=== PATIENT | male | born 1955 | race Caucasian/White ===

== ENCOUNTER 2023-06-20 10:12 | Outpatient (AMB) | payer BC, SELFPAY ==
--- NOTE | 2023-06-20 10:15 | AM.OFFWIN_ITS ---
Intake Vital Signs 06/20/23 10:18 Weight 280 lb BP 130/74 Blood Pressure Location Rt brachial Position Sitting Pulse 56 Pulse Source Pulse Oximeter Pulse Oximetry (%) 98 Oxygen Delivery Method Room Air Intake Visit Reasons: EP, Back pain Intake Note: Patient here for back pain, he states it has been lingering for a long time but the last couple of days it has worsened. Patient Tobacco Use Status: Never used Tobacco Allergies No Known Allergies Allergy (Verified 06/20/23 10:18) Do you need a note to return to daycare/school/sports/work: No HPI EP, Back pain HPI Details Patient presents today with left sided lower back pain. He had a fall about 30 years ago in which he injured his mid lower back, however this resolved and he has not had problems since then. About a week and a half ago he developed left sided lower back pain which is nonradiating. This is worsened with prolonged standing, and rising from a seated or bent over position. He denies any radiation to legs, weakness, saddle anesthesia, or bowel/ bladder dysfunction. [facility] Social History Patient Tobacco Use Status: Never used Tobacco Review of Systems Const All systems reviewed & are unremarkable except as noted in HPI and below Physical Exam Vital Signs: Last Vital Signs Pulse 56 06/20/23 10:18 BP 130/74 06/20/23 10:18 Pulse Ox 98 06/20/23 10:18 Oxygen Delivery Method Room Air 06/20/23 10:18 Const General: cooperative, healthy appearing, comfortable and no acute distress Resp Effort & Inspection: normal respiratory effort and able to speak in complete sentences Back/Spine/Pelvis Cervical Spine: normal cervical lordosis and cervical ROM normal Thoracic/Lumbar Spine: thoracic and lumbar spine normal to inspection, straight leg raise negative bilaterally, pain with thoraco-lumbar ROM (pain with extension, left side bending) and lumbar spinal tenderness (left facet loading pain L3/4/5) Skin General skin exam: no rashes or lesions noted Extrem Other: hip ROM wnl General: Yes capillary refill normal and Yes no clubbing, cyanosis or edema Psych Appearance: grossly normal Mental Status: mental status grossly normal Speech and movement: Normal speech and movement present Assessment & Plan Assessment & Plan (1) Left low back pain: Code(s): M54.50 - Low back pain, unspecified Qualifiers: Chronicity: acute Sciatica presence: without sciatica Qualified Code(s): M54.50 - Low back pain, unspecified Plan: This pain appears to be left lower lumbar facet mediated in nature, likely L3/4, L4/5 on the left. We reviewed conservative measures for this including gentle stretching and nonweightbearing exercises such as biking and swimming. He is going to look into chiropractic treatment to see if this will help. I will order lumbar XR and prescribe him a short course of meloxicam, which we reviewed indications, use, possible side effects for. If he does not improve with conservative treatment, he will consider course of physical therapy and possible injection therapy with Pain Management office. He agrees to plan. Orders: Orders XR lumbar spine 2-3V Today M54.50 - Low back pain, unspecified Medications: New meloxicam 7.5 mg PO DAILY 7 tabs 0RF M54.50 - Low back pain, unspecified Coding Level of Care Code Est Pt Level 3 (14338) Diagnoses Left low back pain M54.50 Chronicity: acute Sciatica presence: without sciatica
[2023-06-20 10:18] VITALS: BP 130/74; PULSE 56; O2SAT 98
== END 2023-06-20 10:52 | disposition home or self-care (01) ==
PROVIDERS: PCP Internal Medicine; Visit Provider Nurse Practitioner Family
DX: M54.50 Low back pain, unspecified (principal)
CPT/HCPCS: 99213

== ENCOUNTER 2023-06-20 10:53 | Outpatient (REF) | payer BC, SELFPAY ==
--- NOTE | ~2023-06-20 | XR_ITS ---
EXAMINATION: XR LUMBOSACRAL SPINE CLINICAL INFORMATION: Low back pain COMPARISON: None available. TECHNIQUE: Three views of the lumbosacral spine. FINDINGS: Mild lumbar lordotic straightening. Trace rightward scoliosis. Multilevel degenerative spurring and disc space narrowings, most severe L5-S1. Multilevel mild vertebral body height losses. Pedicles and SI joints within normal limits. Vascular calcifications. XR/XR lumbar spine 2-3V IMPRESSION: Lumbar lordotic straightening and degenerative type changes.
== END 2023-06-20 10:54 | disposition home or self-care (01) ==
LOC: HO.HMGCX 10:53
PROVIDERS: PCP Internal Medicine; Visit Provider Nurse Practitioner Family
DX: M54.50 Low back pain, unspecified (principal)
CPT/HCPCS: 72100

== ENCOUNTER 2023-08-23 11:05 | Outpatient (AMB) | payer MEDICARE, SELFPAY ==
--- NOTE | 2023-08-23 11:08 | MHC.OFFWIV ---
Intake Vital Signs 08/23/23 11:09 Height 6 ft 1 in Weight 280 lb 8 oz BMI 37.0 BP 128/60 Blood Pressure Location Lt brachial Position Sitting Respiration 13 Pulse 62 Pulse Source Pulse Oximeter Pulse Oximetry (%) 99 Oxygen Delivery Method Room Air Intake Visit Reasons: Back pain Intake Note: Patient reports he was playing racketball x7 days ago and he moved wrong and now his back has been in pain ever since. Patient reports he tried Tylenol over the counter with only small amount of pain relief. Patient reports he is able to sit and lay down without pain, however, when he tries to stand back up again the pain is severe with a 9/10 pain scale. Patient Tobacco Use Status: Never used Tobacco Database Report Writer Required: No Accompanied by: Self / Same As Patient Allergies No Known Allergies Allergy (Verified 08/23/23 11:23) Medication List - Last Reconciled 08/23/23 by MIKEY Estrada-BC atorvastatin 40 mg PO DAILY gabapentin 600 mg PO DAILY losartan 100 mg PO DAILY meloxicam 7.5 mg PO DAILY polymyxin B sulf-trimethoprim 10,000 unit- 1 mg/mL (Polytrim) 1 drp ophthalmic (eye) QID PRN 5 days Do you need a note to return to daycare/school/sports/work: No HPI HPI Comments History of Present Illness Details here today w c/o right lower back that started 7 days ago after playing racketball admits prior hx of back pain in same area while playing ball in the past, however on the L side; most recently 06/2023. Evaled at [facility]. Xray done. Reviewed today. Currently undergoing PT for this issue with + benefit. first time playing in several years APAP taking the edge off a little pain is described as grabbing causes him to sweat. Standing still helps the pain. 9/10 during these events. Self limiting. Admits quick movements can also increase the pain. Walking does not bother him. Intermittent in nature. denies red flag sx assoc w back pain. Further denies any spinal surgeries. [facility] Social History Patient Tobacco Use Status: Never used Tobacco Review of Systems Const All systems reviewed & are unremarkable except as noted in HPI and below Physical Exam Vital Signs: Last Vital Signs Pulse 62 08/23/23 11:09 Resp 13 08/23/23 11:09 BP 128/60 08/23/23 11:09 Pulse Ox 99 08/23/23 11:09 Oxygen Delivery Method Room Air 08/23/23 11:09 BMI result Body Mass Index 37.0 Const General: cooperative, healthy appearing, comfortable and no acute distress Resp Effort & Inspection: normal respiratory effort and able to speak in complete sentences Back/Spine/Pelvis Other: sitting to standing, has to pause d/t pain. Self limiting last seconds. + paraspinal muscle tightness on R. Palpation does not reproduce the pain. No CVAT bilat, Cervical Spine: normal cervical lordosis and cervical ROM normal Thoracic/Lumbar Spine: thoracic and lumbar spine normal to inspection, straight leg raise negative bilaterally and pain with thoraco-lumbar ROM (pain with extension, left side bending) Sacroiliac joints: on the right nontender and on the left nontender Skin General skin exam: no rashes or lesions noted Extrem Other: hip ROM wnl General: Yes capillary refill normal and Yes no clubbing, cyanosis or edema Psych Appearance: grossly normal Mental Status: mental status grossly normal Speech and movement: Normal speech and movement present Assessment & Plan Assessment & Plan (1) Spasm of muscle of lower back: Code(s): M62.830 - Muscle spasm of back Medications: New cyclobenzaprine 5 mg PO BID 7 days PRN 14 tabs 0RF muscle spasm Refilled meloxicam 7.5 mg PO DAILY 14 tabs 0RF M54.50 - Low back pain, unspecified Patient Instructions: Advised to take meloxicam as directed with food. Use of muscle relaxers sparingly. Encouraged take the 1st dose while at home to see how it affects him. Do not drive or operate heavy machinery, drink alcohol or work while taking muscle relaxers as it may cause you to feel sleepy. Encouraged to continue gentle ecuun-nt-paxpkg exercises. Discouraged bed rest. He is already acted with physical therapy. Reports that his next appointment was expected to be his last. I have asked him to speak with the PT team and if they felt it was indicated to request an extension to help him work through the pain that he is having on his right side down. He prefers to wait to have this last appointment until after his pain has improved some. Encouraged him to continue to play this worse that he likes while taking appropriate precautions. Also educated on reasons to return to the office for further evaluation treatment. Coding Level of Care Code Est Pt Level 3 (37714) Diagnoses Spasm of muscle of lower back M62.830
[2023-08-23 11:09] VITALS: BP 128/60; PULSE 62; RESP 13; O2SAT 99; BMI 37.0
== END 2023-08-23 11:41 | disposition home or self-care (01) ==
PROVIDERS: PCP Internal Medicine; Visit Provider Nurse Practitioner Family
DX: M62.830 Muscle spasm of back (principal)
CPT/HCPCS: 99213

== ENCOUNTER 2025-03-11 07:55 | Outpatient (AMB) | payer MEDICARE, SELFPAY ==
--- OUTSIDE RECORDS SUMMARY | 2025-03-11 07:58 | XMS_ITS ---
Author Organization [facility] favian [place] Address [address] [facility] INDIGO [place] [address] Care Team Providers Care Senior Mechanical Technician Name Role Phone Mukul Woodall M.D. Primary Care Provider Unavailable Hima Gonzalez [phone] REASON FOR VISIT [facility] Encounters Encounter Location Date Provider Diagnosis [facility] [address] [address] 02/10/2025 Hima Gonzalez Plan Of Treatment Next Appt Details Provider Name:Hima Gonzalez , 05/19/2025 04:00:00 PM, [address] [place] [address], [place], [phone], Progress Notes * Elieser WEBER RDOB:[birth year] (69 yo M)Acc No.[id number]:02/10/2025 Patient:?Elieser WEBER :1955???Age:69 Y???Sex:Male Address: [place], [address] * true * Date:? Generated for Printi ng/Faxing/eTransmitting on:?03/11/2025 07:58 AM EDT
--- OUTSIDE RECORDS SUMMARY | 2025-03-11 07:59 | XMS_ITS | Data Portability ---
Author Organization [place] [facility], Allergy Address [address] [address] Care Team Providers Care Automat Car Attendant Name Role Phone JACEY PERDUE Primary Care Provider [phone] Assessment Encounter Date Assessment Date Assessment LastModified by Organization Details LastModified Time 09/27/2024 09/27/2024 68-year-old male with longstanding history of asymmetric hearing loss using binaural amplification from [employer] and bilateral EACs osteomas presents for routine audiometric testing. Cerumen impaction removed bilaterally. 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 Bilateral TMs are intact. No evidence of infection on exam today. Audiometric testing today demonstrated an essentially stable asymmetric sensorineural hearing loss, worse on the right. We will continue to observe asymmetric hearing loss and plan for repeat audiometric testing in one year. He will follow-up at that time, or sooner with any concerns. Patient was provided with copy of today's audiogram and medical clearance for amplification. He will follow up with his field handyman for routine hearing aid maintenance. [email or web address] Not available 09/27/2024 10:55:33 Plan of Treatment Reminders Order Date Submit Date Provider Last Modified By Organization Details Last Modified Time Details Appointments Hearing Test 2024 10:00A M Hearing Test Not available Not available Not available Establish ed 15 2024 10:30A M DIEGO CLAY PA-C Not available Not available Not available Lab None recorded. Referral None recorded. Procedures None recorded. Surgeries None recorded. Imaging None recorded. Medication Orders None recorded. Patient TargetsNo targets recorded. Patient InstructionsNo instructions recorded. Reason for Referral None Reported. Problems Name Problem SNOMED Code Status Onset Date Resolution Date Notes Provider Name and Address Organization Details Recorded Time Sensorine ural hearing loss of bilateral ears 867022135 Active 2017 Sensorine ural hearing loss, bilateral ; Note: Date Diagnosed : 8 3:45 PM (H90.3) Not Available [facility] 4 03:27:35 Impacted cerumen of bilateral ears [id number] 09763 Active 2022 Impacted cerumen, bilateral ; Note: Date Diagnosed : 3 12:42 PM (H61.23) Not Available [facility] 4 03:27:34 Bilateral exostosis of external ear canals [id number] 38648 Active 2018 Exostosis of external canal, bilateral ; Note: Date Diagnosed : 12/20/2018 12:07 PM (H61.813) Not Available [facility] 4 03:27:34 Problem Notes None recorded. Procedures Surgical History Date Name Laterality Status Provider Name and Address Organization Details Recorded Time 4 Cerumen removal without microscope bilat completed DIEGO CLAY PA-C [address] [place] [address], [phone], [facility] 09/27/2024 10:53:14 4 Air & Speech Audio with Tymps - 82108, 88786 & 67976 completed TYRELL KHAN [address] [place] [address], [phone], [facility] 09/27/2024 10:08:19 Imaging Results None recorded. Procedure Notes None recorded. Medical Equipment None Reported. Allergies Allergen ID Allergen Name Allergen Category Reaction Reaction Severity Criticality Documentation Date Start Date Code Code System Note Provider Name and Address Organization Details Recorded Time 33555 lisinopri l medicatio n other Not available Not available 03/19/2024 50063 RxNorm React ion: unkno wn, unspe cifie d;; Not Available [facility] 4 00:49:57 Medications Name Sig Start Date Stop Date Status Note LastModified by Organization Details LastModified Time atorvastati n 40 mg tablet TAKE 1 TABLET ONCE DAILY active Not Available Not Available No t Available senna 8.6 mg tablet TAKE ONE TABLET BY MOUTH EVERY DAY active Not Available Not Available No t Available cephalexin 500 mg capsule TAKE ONE CAPSULE BY MOUTH EVERY 6 HOURS FOR 10 DAYS 09/27 completed Not Available Not Available Not Available gabapentin 300 mg capsule TAKE 2 CAPSULES NIGHTLY active Not Available Not Available No t Available Iodosorb 0.9 % topical gel APPLY DIRECTED EXTERNALL Y TO ULCERATIO N DAILY WITH DRY STERILE DRESSING 09/27 completed Not Available Not Available Not Available losartan 100 mg tablet active Not Available Not Available Not Available ciclopirox 0.77 % topical cream APPLY ONE APPLICATI ON EXTERNAL TWICE A DAY TO FEET INCLUDING BETWEEN THE TOES active Not Available Not Available No t Available Vitals None Recorded Social History None recorded. Functional Status None recorded. Mental Status None recorded. Family History Nothing Reported. Medical History Condition Response High Cholesterol Y Hypertension Y Past Encounters Encounter ID Performer Location Encounter Start Date Encounter Closed Date Diagnosis/Indication Diagnosis SNOMED-CT Code Diagnosis ICD10 Code Diagnosis Note [id number] DIEGO CLAY PA-C [facility] [address] [address] 09/27/2024 09:40:19 09/27/2024 10:48:43 Sensorineural hearing loss of bilateral ears [id number] H90.3 Audiologic al evaluation results: Right ear: {{Normal* Normal through 2 kHz Mild M oderate Mo derately-s evere Pearl re Profoun d}} {{hearing hearing. s loping to a mild slopi ng to a moderate s loping to moderately severe slo ping to severe slo ping to profound* flat high frequency low frequency mid frequency cookie bite jack curve}} {{with sen sorineural hearing loss with* cond uctive hearing loss with mixed hearing loss with}} {{excellen t good* fa ir poor no measurable }} word recognitio n. Left ear: {{Normal* Normal through 2 kHz Mild M oderate Mo derately-s evere Pearl re Profoun d}} {{hearing hearing. s loping to a mild slopi ng to a moderate s loping to moderately severe slo ping to severe* sl oping to profound f lat high frequency low frequency mid frequency cookie bite jack curve}} {{with sen sorineural hearing loss with* cond uctive hearing loss with mixed hearing loss with}} {{excellen t* good fa ir poor no measurable }} word recognitio n. Tympanomet ry: Right Ear:{{Type A* Type As Type Ad Type C Type C, shallow & rounded Ty pe B Type B with large volume Cou ld not maintain a hermetic seal}} Left Ear:{{Type A Type As Type Ad* Type C Type C, shallow & rounded Ty pe B Type B with large volume Cou ld not maintain a hermetic seal}} Impacted c erumen of bilateral ears [id number] H61.23 Health Concerns Section Related Observation LastModified by Organization Detai ls LastModified Time None Recorded Concern Status LastModified by Organization Details LastModified Time None Recorded Advance Directives Directive None Recorded Payers Encounter Date Sequence Insurance Name Policy Number Policy Raymond Covered Member ID Raymond Member ID Guarantor Name 09/27/2024 1 [facility]: MEDICARE PPO BLUE (MEDICARE REPLACEMENT PPO) [id number] Elieser Beckwith [id number] Elieser Beckwith Notes Date Note Type Note Provider Name and Address Organization Details Recorded Time 09/27/2024 text/html 68-year-old male with longstanding history of asymmetric hearing loss using binaural amplification from [employer] and bilateral EACs osteomas presents for routine audiometric testing. Reports gradual decline in hearing on the right and intermittent otalgia, but denies otorrhea and tinnitus. Is considering new hearing aids. DIEGO CLAY PA-C [address] [place] [address], [phone], [facility] 09/27/2024 10:56:15
--- OUTSIDE RECORDS SUMMARY | 2025-03-11 07:59 | XMS_ITS | Patient Health Record ---
Author Organization [facility] Laurie favian [place] Address [address] [facility] [place] [address] Care Team Providers Care Communication Assistant Name Role Phone Mukul Woodall M.D. Primary Care Provider Unavailable Hima Gonzalez Unavailable [phone] Allergies No Known Allergies Reason For Referral No Information Medications Medication SIG (Take, Route, Frequency, Duration) Notes Start Date End Date Status Cephalexin 500 MG 1 capsule Orally amaya ry 6 hrs for 10 days Not-Taking Mupirocin Not-Taking Atorvastatin Calcium 40 MG 1 tablet Orally Once a day for 30 day(s) Active Gabapentin 600 MG 1 tablet Orally Once a day for 30 days Active Gabapentin 300 MG 1 capsule Orally Onc e a day Active Losartan Potassium 100 MG 1 tablet Orall y Once a day for 30 day(s) Active Ciclopirox Olamine 0.77 % 1 application Externally Twice a day to feet including between the toes for 30 days Active Iodosorb 0.9 % as directed External ly Apply to ulceration daily with dry sterile dressing for 30 days Not-Taking Social History Tobacco Use: Social History Observation Description Date Details (start date - stop date) Never Smoker NA - NA Alcohol Screen Question Answer Notes Did you have a drink containing alcohol in the p ast year? No Points 0 Interpretation Negative Tobacco use other than smoking: Question Answer Notes Are you an other tobacco user? 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 Vital Signs Blood pressure diastolic 71 mm Hg 11/11/2024 Height 6ft 1in in 02/10/2025 Blood pressure systolic 130 mm Hg 11/11/2024 Weight 275 lbs 02/10/2025 BMI 36.28 kg/m2 02/10/2025 Procedures Procedure Date Ordered Date Performed Result Body Sit e 15902-MNWQBMX NAIL, 1-5 03/14/2024 N/A 94663-HUOU SKIN LESIONS, OVER 4 03/14/2024 N/A H1838-WIDKLYWQ DYSTROPHIC NAILS ANY # 03/14/2024 N/A 74351-YBVWRZU NAIL, 1-5 05/20/2024 N/A 40389-Fqwqjncq Plate 05/20/2024 N/A 73027-SOBT SKIN LESIONS, OVER 4 05/20/2024 N/A M4558-UVFAMBLU DYSTROPHIC NAILS ANY # 05/20/2024 N/A 29906- Removal of Foreign Body, Subcut 05/20/2024 N/A 72476-QBRRKAQ NAIL, 1-5 08/05/2024 N/A 48760-XPZW SKIN LESIONS, OVER 4 08/05/2024 N/A W2317-SZQHQLVB DYSTROPHIC NAILS ANY # 08/05/2024 N/A 03890-QYSJYZL NAIL, 1-5 11/11/2024 N/A 38289-ENPN SKIN LESIONS, OVER 4 11/11/2024 N/A L3926-ACLZYNAL DYSTROPHIC NAILS ANY # 11/11/2024 N/A 16873-ESHCXDN NAIL, 1-5 02/10/2025 N/A 59534-IFMF SKIN LESIONS, OVER 4 02/10/2025 N/A T1044-VADWLNXN DYSTROPHIC NAILS ANY # 02/10/2025 N/A Encounters Encounter Location Date Provider Diagnosis [facility] [address] [place] [phone] 03/14/2024 Hima Lisa Tinea unguium B35.1 ; Neuropathy, 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 and 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.522 [facility] [address] [place] [phone] 05/20/2024 Hima Lisa Tinea unguium B35.1 ; Neuropathy, 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 ; Neurotrophic ulcer of left foot limited to breakdown of skin L97.521 ; Ingrown nail L60.0 and Puncture wound with foreign body, right foot, initial encounter S91.341A [facility] [address] [address] 08/05/2024 Hima Lisa Tinea unguium B35.1 ; Neuropathy, 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 and Tinea pedis of both feet B35.[address] [facility] [address] 11/11/2024 Hima Lisa Tinea unguium B35.1 ; Neuropathy, 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 and Tinea pedis of both feet B35.[address] [address] 02/10/2025 Hima Lisa Tinea unguium B35.1 and Neuropathy, 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 [address] 03/14/2024 Himavargas Gonzalez [address] [address] 04/26/2024 Hima Lisa [address] [address] 02/10/2025 Hima Lisa Assessments Encounter Date Diagnosis (ICD Code) Assessment Notes Treatment Notes Treatment Clinical Notes Section Notes 03/14/2024 Tinea unguium (ICD-10 - B35.1) 03/14/2024 Neuropathy, alcoholic (ICD-10 - G62.1) 05/20/2024 Tinea unguium (ICD-10 - B35.1) 05/20/2024 Neuropathy, alcoholic (ICD-10 - G62.1) 08/05/2024 Tinea unguium (ICD-10 - B35.1) 08/05/2024 Neuropathy, alcoholic (ICD-10 - G62.1) 11/11/2024 Tinea unguium (ICD-10 - B35.1) 11/11/2024 Neuropathy, alcoholic (ICD-10 - G62.1) 02/10/2025 Tinea unguium (ICD-10 - B35.1) 02/10/2025 Neuropathy, alcoholic (ICD-10 - G62.1) 11/11/2024 Tinea pedis of both feet (ICD-10 - B35.3) 05/20/2024 Neurotrophic ulcer of left foot limited to breakdown of skin (ICD-10 - L97.521) Response to treatment,Impro vement 03/14/2024 Neuropathic ulcer of left foot with fat layer exposed (ICD-10 - L97.522) Response to treatment - PER [facility] 05/20/2024 Ingrown nail (ICD-10 - L60.0) 08/05/2024 Tinea pedis of both feet (ICD-10 - B35.3) 05/20/2024 Puncture wound with foreign body, right foot, initial encounter (ICD-10 - S91.341A) 03/14/2024 Other 05/20/2024 Other 08/05/2024 Other 11/11/2024 Other 02/10/2025 Other Plan Of Treatment Pending Test Test Name Order Date X ray : Foot, left 3V 12/04/2023 14609-CVHFXVQ NAIL, 1-5 10/04/2023 92017-AIRHESH NAIL, 1-5 07/24/2023 48124-FDQIGFE NAIL, 1-5 03/02/2023 80133-IHUQBDR NAIL, 1-5 05/12/2023 70753-SNGYUUW NAIL, 1-5 01/03/2024 07072-LCZDYWZ NAIL, 1-5 03/14/2024 86693-TPINPLY NAIL, 1-5 05/20/2024 37382-HOUAILJ NAIL, 1-5 08/05/2024 20016-LYJWFZE NAIL, 1-5 11/11/2024 61529-CQMHEER NAIL, 1-5 02/10/2025 17823-Oensipfs Plate 05/20/2024 43777- Debride <25 sq cm 04/07/2023 32963- Debride <25 sq cm 05/12/2023 28157-DNDRFQW SKIN/TISSUE 03/02/2023 11438-OPBSPNK SKIN/TISSUE 03/21/2023 06296-KEFADZZ SKIN/TISSUE 12/22/2023 85423-YXKWVRN SKIN/TISSUE 12/04/2023 02478-DPQKMJW SKIN/TISSUE 01/03/2024 18982-DOKI SKIN LESIONS, OVER 4 01/03/20 24 96421-IEUP SKIN LESIONS, OVER 4 05/20/20 24 64216-DTHH SKIN LESIONS, OVER 4 03/14/20 24 13794-VZWC SKIN LESIONS, OVER 4 08/05/20 24 55840-NNLN SKIN LESIONS, OVER 4 02/11/20 25 03280-OKNL SKIN LESIONS, OVER 4 11/11/19 25 78521-HKPZ SKIN LESIONS, OVER 4 10/04/20 23 17777-HHLB SKIN LESIONS, OVER 4 07/24/20 23 76514-XWCS SKIN LESIONS, 2 TO 4 03/02/20 23 43972-LZUV SKIN LESIONS, 2 TO 4 05/12/20 23 W2852-IZSAWTBA DYSTROPHIC NAILS ANY # Q3986-RFUFSFXJ DYSTROPHIC NAILS ANY # N8340-VVGBYYKL DYSTROPHIC NAILS ANY # O2897-CJUCCKVZ DYSTROPHIC NAILS ANY # C4826-GWZPVQUM DYSTROPHIC NAILS ANY # F7208-ZGVQOBUU DYSTROPHIC NAILS ANY # Q7561-UNMBCNZR DYSTROPHIC NAILS ANY # F2314-OGPDSNKP DYSTROPHIC NAILS ANY # W8897-BOQXORYA DYSTROPHIC NAILS ANY # C8600-YEKSLXXQ DYSTROPHIC NAILS ANY # 43641- Removal of Foreign Body, Subcut 0 05/20/2024 Next Appt Details Provider Name:Hima Gonzalez , 05/19/2025 04:00:00 PM, [address] [facility] [address], [place], [address], Insurance Providers Payer Name Payer Address Payer Phone Subscriber Number Group Number Insured Name Patient Relationship to Insured Coverage Start Date Coverage End Date [facility] 65 Medicare Preferred [address] [place] [address] [id number] Elieser Beckwith Self - patient is the insured Medical (General) History Medical History History ICD Code CAD (Cholesterol) covid-19 High blood pressure Numbness Measles Mumps Chicken pox Neuropathy Surgical History Surgery Date(Month/Year) Hospitalization History Reason Date(Month/[place] [facility] [place]
--- OUTSIDE RECORDS SUMMARY | 2025-03-11 07:59 | XMS_ITS | Clinical Summary ---
Author Organization Patient Business Ser [facility] Address [address] [place] [address] Care Team Providers Care Parts Administrator Name Role Phone Mukul Woodall MD Primary Care Provider [phone] Allergies Active Allergy Reactions Criticality Noted Date Comments Lisinopril Other Medium 06/05/2009 Cough due to lisinopril Medications senna (SENOKOT) 8.6 mg tablet Take 1 tablet (8.6 mg total) by mouth 1 (one) time each day. 07/04/2024 Active MEN'S MULTI-VITAMIN ORAL Take 1 tablet by mouth 1 (one) time each day. Active TURMERIC ORAL Take by mouth 1 (one) time each day. Active atorvastatin (LIPITOR) 40 mg tablet Take 1 tablet (40 mg total) by mouth 1 (one) time each day. 90 tablet 1 09/20/2024 Active UNABLE TO FIND Inhale by mouth. Active losartan (COZAAR) 100 mg tablet Take 1 tablet (100 mg total) by mouth 1 (one) time each day. 90 tablet 1 09/30/2024 Active gabapentin (NEURONTIN) 300 mg capsule Take 2 capsules (600 mg total) by mouth at bedtime. 60 capsule 2 11/07/2024 Active Active Problems Problem Noted Date Diagnosed Date Prediabetes 02/15/2024 Multiple thyroid nodules 07/27/2023 Lumbar degenerative disc disease 07/06/2023 Obesity (BMI 30-39.9) 09/07/2018 Obstructive sleep apnea syndrome 09/07/2018 Neuropathy of both feet 11/17/2017 Varicose vein of leg 11/17/2017 Essential hypertension, benign 04/26/2007 Hyperlipidemia 04/12/2007 Encounters Date Type Department Care Team Description 03/10/2025 Telephone Internal Medicine - [facility] [address] [facility] [place] [id number] Mukul Woodall MD Arm Injury 01/03/2025 8:00 AM EST Office Visit Internal Medicine - [address] [place] [phone] Mukul Woodall MD Routine general medical examination at a health care facility (Primary Dx); Prediabetes; Multiple thyroid nodules; Screening for prostate cancer; Hypertension, unspecified type; Otitis externa of both ears, unspecified chronicity, unspecified type from Last 3 Months Immunizations Name Administration Dates Next Due Influenza Quadravalent, MDCK , 0.5ml, preservative free (Flucelvax) 6mo and older 08/28/2020,07/19/2019 Influenza Quadravalent, MDCK , 0.5ml, with preservative (Flucelvax) 6mo and older 08/10/2018 Influenza trivalent, 0.5mL ( Fluzone High-dose) 65yo and older 08/18/2022 Influenza, Unspecified 08/07/2023 Moderna SARS-CoV-2 COVID-19, mRNA, LNP-S, preservative free 02/19/2021,01/22/2021 Pneumococcal conjugate 20 va lent (Prevnar 20, PCV 20) 2mo and older 01/03/2025 Pneumococcal polysaccharide 23 valent (Pneumovax 23) 2yo and older 03/10/2023,02/28/2022 Td Tetanus diptheria (Tdvax) 7yo and older 08/28,09/29/2000 Tdap Tetanus diptheria acell ular pertussis (Boostrix; Adacel) 7yo and older 11/13/2009 Surgical History Surgery Date Site/Laterality Comments TONSILLECTOMY PROCEDURE: HISTORICAL TONSILLECTOMY MULTIPLE TOOTH EXTRACTIONS teenager PROCEDURE: HISTORICAL DENTAL EXTRACTION; COMMENT: 2 congenital teeth extracted, no unusual bleeding COLONOSCOPY 01/13/06 PROCEDURE: HISTORICAL COLONOSCOPY; COMMENT: repeat in 10yrs. Medical History Medical History Date Comments Other and unspecified hyperlipidemia 04/12/2007 DX:Other and unspecified hyperlipidemia Essential hypertension, benign 04/26/2007 D X:Essential hypertension, benign Lumbar degenerative disc disease 07/06/2023 DX:Lumbar degenerative disc disease Multiple thyroid nodules 07/27/2023 DX:Mult iple thyroid nodules Family History Medical History Relation Name Comments Other: thyroid cancer Father Alcohol abuse Mother Other: diverticulitis Mother Other: smoker Mother Hyperlipidemia Sister Hypertension Sister Uterine cancer Sister hysterectomy Prostate cancer Uncle Relation Name Status Comments Father (Age 70s) thyroid c ancer Mother (Age 70s) Sister Alive obese, hyperlip idemia, HTN, hyst for CA (uterine) Uncle Alive PatUncle age 50 's ?colon or prostate Social History Tobacco Use Types Packs/Day Years Used Date Smoking Tobacco: Never Smokeless Tobacco: Never Tobacco Cessation:Counseling Given: Not Answered Alcohol Use Standard Drinks/Week Comments Yes 20 (1 standard drink = 0.6 oz pu re alcohol) Housing Instability Answer Date Recorde d Are you worried that in the next 2 months you may not have stable housing? No 12/27/2024 Food Access & Nutrition Answer Date Rec orded Do you have access to a vari ety of food including fruits and vegetables? Yes 12/27/2024 Access to Healthcare Answer Date Record ed Within the last 3 months, ho sarthak many times did you visit the emergency department for your medical care? 0 12/27/2024 Health Literacy Answer Date Recorded How often do you need to hav e someone help you when you read instructions, pamphlets, or other written material from your doctor or pharmacy? Never 12/27/2024 Caregiver: How often do you need to have someone help you when you read instructions, pamphlets, or other written material from your doctor or pharmacy? Not on file 12/27/2024 Financial Risk Answer Date Recorded How hard is it for you to pa y for the very basics like food, housing, medical care, and air conditioning / heating? Not very hard 12/27/2024 Transportation Answer Date Recorded Has the lack of transportati on kept you from meetings, work, or from getting things needed for daily living? No Has the lack of transportati on kept you from medical appointments or from getting medications? No 12/27/2024 Social Isolation Answer Date Recorded How often do you feel lonely or isolated from th ose around you? Never 12/27/2024 Food Risk Answer Date Recorded Within the past 12 months we worried whether our food would run out before we got money to buy more. Never true 12/27/2024 Within the past 12 months th e food we bought just didn't last and we didn't have money to get more. Never true 12/27/2024 Dependent Care Answer Date Recorded Do you need help finding or paying for care for your loved ones. For example, child protective investigator or elderly care for an older adult? No 12/27/2024 Education Answer Date Recorded Do you think completing more education or training, like finishing a GED, going to college, or learning a trade, would be helpful for you? No 12/27/2024 Employment and Income Answer Date Recor ded During the last four weeks, have you been actively looking for work? No 12/27/2024 Living Situation Answer Date Recorded What is your living situation? 0 12/27/2024 Sex and Gender Information Value Date Recorded Sex Assigned at Not on file Legal Sex Male 9:24 AM EDT Gender Identity Not on file Sexual Orientation Not on file Obstetrics History Last Filed Vital Signs Vital Sign Reading Time Taken Comments Blood Pressure 122/66 01/03/2025 8:21 AM EST Pulse 68 01/03/2025 7:58 AM EST Temperature 36.9 ??C (98.5 ??F) 01/03/2025 7:58 AM ES T Respiratory Rate 18 11/07/2024 8:14 AM EST Oxygen Saturation 97% 11/07/2024 8:14 AM EST Inhaled Oxygen Concentration - - Weight 130 kg (285 lb 8 oz) 01/03/2025 7:[address] Height 186.7 cm (6' 1.5 ) 01/03/2025 7:58 AM EST Body Mass Index 37.16 01/03/2025 7:58 AM EST Plan of Treatment Upcoming Encounters Date Type Department Care Team (Late st Contact Info) Description 07/03/2025 9:30 AM EDT [facility] [address] [facility] [place] [address] Mukul Woodall MD [address] [place] [address] 08/22/2025 8:20 AM EDT Office Visit Endocrinology - [place] [address] [place] [address] Libra Neff PA [address] [place] [address] 11/20/2025 8:00 AM EST Office Visit Pulmonolgy - [place] [address] [facility] [address] [place] [phone] Pat He MD 175 [facility] [address] [place] [address] Health Maintenance Due Date Last Done Comments Medicare Annual Wellness Visit 04/05/2020 Falls Risk Assessment 2020 COVID-19 Vaccine ( season) 2025 08/22/2024, 09/14/2023, 08/13/2022, Additional history exists Depression Screening 12/27/2025 12/27/2024 Social Influencers of Health Screening 12/27/2025 12/27/2024 Hypertension/CHF/CAD Annual BMP Blood Test 01/09/2026 01/09/2025, 07/04/2024, 07/04/2024 Colorectal Cancer Screening: Colonoscopy 01/14/2026 01/15/2016, 01/15/2016 Cholesterol Screening (Lipid Panel) 01/09/2030 01/09/2025, 01/05/2024 DTaP,Tdap,and Td Vaccines (4 - Td or Tdap) 08/28/2030 08/28/2020, 11/13/2009, 09/29/2000 RSV Immunization Adult Patients (1 - 1-dose 75+ series) 2030 Hepatitis C Screening Completed 08/18/2014, 014 Zoster Vaccines Completed 05/23/2019, 02/09/2019 Influenza Vaccine Completed 08/22/2024, , 08/07/2023, Additional history exists Pneumococcal Vaccine: 50+ Years Completed 01/03/2025, 03/10/2023, 02/28/2022 HIB Vaccines Aged Out No longer eligi ble based on patient's age to complete this topic HPV Vaccines Aged Out No longer eligi ble based on patient's age to complete this topic Hepatitis A Vaccines Aged Out No long er eligible based on patient's age to complete this topic Hepatitis B Vaccines Aged Out No long er eligible based on patient's age to complete this topic IPV Vaccines Aged Out No longer eligi ble based on patient's age to complete this topic MMR Vaccines Aged Out No longer eligi ble based on patient's age to complete this topic Meningococcal ACWY Vaccine Aged Out N o longer eligible based on patient's age to complete this topic Meningococcal B Vaccine Aged Out No l onger eligible based on patient's age to complete this topic RSV Immunization Patients Under 20 months Aged Out No longer eligible based on patient's age to complete this topic Varicella Vaccines Aged Out No longer eligible based on patient's age to complete this topic Procedures Procedure Name Priority Date/Time Associated Diagnosis Comments CBC WITH AUTO DIFFERENTIAL Routine 01/09/2025 9:16 AM EST Multiple thyroid nodules PROSTATE SPECIFIC ANTIGEN SCREEN Routine 01/09/2025 9:16 AM EST Screening for prostate cancer HEMOGLOBIN A1C Routine 01/09/2025 9:16 AM EST Prediabetes LIPID PANEL WITH REFLEX TO DIRECT LDL Routine 01/09/2025 9:16 AM EST Routine general medical examination at a health care facility COMPREHENSIVE METABOLIC PANEL Routine 01/09/2025 9:16 AM EST Routine general medical examination at a health care facility CBC AND DIFFERENTIAL Routine 01/09/2025 9:16 AM EST Multiple thyroid nodules THYROID STIMULATING HORMONE WITH REFLEX TO FREE T4 AND FREE T3 Routine 01/09/2025 9:16 AM EST Multiple thyroid nodules HM COLONOSCOPY Routine 01/15/2016 HEPATITIS C SCREENING Routine 08/18/2014 from Last 3 Months or Most Recently Relevant to Health Maintenance Results * Prostate specific antigen screen (01/09/2025 9:16 AM EST) [facility] PSA 1.37 0.00 - 4.00 ng/mL LAB CHEMISTRY METHOD 01/09/2025 1:06 PM EST [facility] Blood Venous blood specimen / Unknown Venipuncture / Unknown 01/09/2025 9:16 AM EST 01/09/2025 9:16 AM EST Narrative [facility] - 01/09/2025 1:06 PM EST The Siemens Advia Inclinixaur Chemiluminescent Immunoassay is used. Results obtained with different assay methods or kits cannot be used interchangeably. Results cannot be interpreted as absolute evidence of the presence or absence of malignant disease. Mukul Woodall MD LAB BLOOD ORDERABLES Gissel l Result [facility] [address] [place] [address], [place] [phone] * Thyroid stimulating hormone with reflex to free t4 and free t3 (01/09/2025 9:16 AM EST) [facility] TSH 1.96 0.40 - 4.00 mcIU/mL LAB CHEMISTRY METHOD 01/09/2025 1:06 PM EST [facility] Blood Venous blood specimen / Unknown Venipuncture / Unknown 01/09/2025 9:16 AM EST 01/09/2025 9:16 AM EST Mukul Woodall MD LAB BLOOD ORDERABLES Gissel l Result [facility] [address] [place] [address], [place] [phone] * Lipid panel with reflex to direct LDL (01/09/2025 9:16 AM EST) [facility] Cholesterol 129 0 - 200 mg/dL LAB CHEMISTRY METHOD 01/09/2025 1:36 PM [facility] Triglycerides 82 0 - 150 mg/dL LAB CHEMISTRY METHOD 01/09/2025 1:36 PM [facility] HDL 50 >=40 mg/dL LAB CHEMISTRY METHOD 01/09/2025 1:36 PM [facility] LDL Calculated 63 0 - 100 mg/dL LAB CHEMISTRY METHOD 01/09/2025 1:36 PM EST [facility] VLDL Cholesterol Nav 16.4 mg/dL LAB CHEMISTRY METHOD 01/09/2025 1:36 PM [facility] Non HDL Chol. (LDL+VLDL) 79 <145 mg/dL LAB CHEMISTRY METHOD 01/09/2025 1:36 PM [facility] Chol/HDL Ratio 2.6 0.0 - 4.4 LAB CHEMISTRY METHOD 01/09/2025 1:36 PM [facility] Blood Venous blood specimen / Unknown Venipuncture / Unknown 01/09/2025 9:16 AM EST 01/09/2025 9:16 AM EST Mukul Woodall MD LAB BLOOD ORDERABLES Gissel l Result [facility] [address] [place] [address], * CBC auto differential (01/09/2025 9:16 AM EST) [facility] WBC 7.4 4.8 - 10.8 K/mcL LAB HEMETOLOGY METHOD 01/09/2025 12:28 PM [facility] RBC 4.90 4.50 - 5.50 M/mcL LAB HEMETOLOGY METHOD 01/09/2025 12:28 PM [facility] Hemoglobin 15.0 13.5 - 17.5 g/dL LAB HEMETOLOGY METHOD 01/09/2025 12:28 PM [facility] Hematocrit 45.7 42.0 - 54.0 % LAB HEMETOLOGY METHOD 01/09/2025 12:28 PM [facility] MCV 92.5 79.0 - 98.0 FL LAB HEMETOLOGY METHOD 01/09/2025 12:28 PM [facility] MCH 30.4 27.0 - 32.0 pcg LAB HEMETOLOGY METHOD 01/09/2025 12:28 PM [facility] MCHC 32.8 32.0 - 37.0 g/dL LAB HEMETOLOGY METHOD 01/09/2025 12:28 PM [facility] RDW 12.8 11.0 - 15.0 % LAB HEMETOLOGY METHOD 01/09/2025 12:28 PM [facility] Platelets 213 130 - 400 K/mcL LAB HEMETOLOGY METHOD 01/09/2025 12:28 PM [facility] MPV 11.0 7.0 - 11.0 FL LAB HEMETOLOGY METHOD 01/09/2025 12:28 PM [facility] NRBC 0.0 <1.0 % LAB HEMETOLOGY METHOD 01/09/2025 12:28 PM [facility] NRBC Absolute 0.00 <0.10 K/mcL LAB HEMETOLOGY METHOD 01/09/2025 12:28 PM [facility] Neutrophils Relative 64.2 % LAB HEMETOLOGY METHOD 01/09/2025 12:28 PM [facility] Lymphocytes Relative 24.9 % LAB HEMETOLOGY METHOD 01/09/2025 12:28 PM [facility] Monocytes Relative 7.8 % LAB HEMETOLOGY METHOD 01/09/2025 12:28 PM [facility] Eosinophils Relative 2.3 % LAB HEMETOLOGY METHOD 01/09/2025 12:28 PM EST [facility] Basophils Relative 0.5 % LAB HEMETOLOGY METHOD 01/09/2025 12:28 PM [facility] Immature Granulocytes Relative 0.3 % LAB HEMETOLOGY METHOD 01/09/2025 12:28 PM [facility] Neutrophils Absolute 4.75 1.50 - 7.00 K/mcL LAB HEMETOLOGY METHOD 01/09/2025 12:28 PM [facility] Lymphocytes Absolute 1.84 1.00 - 5.00 K/mcL LAB HEMETOLOGY METHOD 01/09/2025 12:28 PM [facility] Monocytes Absolute 0.58 0.20 - 1.00 K/mcL LAB HEMETOLOGY METHOD 01/09/2025 12:28 PM [facility] Eosinophils Absolute 0.17 0.00 - 0.50 K/mcL LAB HEMETOLOGY METHOD 01/09/2025 12:28 PM EST [facility] Basophils Absolute 0.04 0.00 - 0.20 K/mcL LAB HEMETOLOGY METHOD 01/09/2025 12:28 PM [facility] Immature Granulocytes Absolute 0.02 0.00 - 0.03 K/mcL LAB HEMETOLOGY METHOD 01/09/2025 12:28 PM [facility] Blood Venous blood specimen / Unknown Venipuncture / Unknown 01/09/2025 9:16 AM EST 01/09/2025 9:16 AM EST us Mukul Woodall MD LAB BLOOD ORDERABLES Gissel davis Result [facility] [address] [place] [address], * Hemoglobin A1c (01/09/2025 9:16 AM EST) Hemoglobin A1C 5.9 <6.5 % LAB CHEMISTRY METHOD 01/09/2025 8:59 PM [facility] Mean Bld Glu Estim. 123 mg/dL LAB CHEMISTRY METHOD 01/09/2025 8:59 PM [facility] Blood Venous blood specimen / Unknown Venipuncture / Unknown 01/09/2025 9:16 AM EST 01/09/2025 9:16 AM EST us Mukul Woodall MD LAB BLOOD ORDERABLES Gissel l Result [facility] [address] [place] [address], * Comprehensive metabolic panel (01/09/2025 9:16 AM EST) Sodium 139 133 - 145 mmol/L LAB CHEMISTRY METHOD 01/09/2025 1:36 PM [facility] Potassium 4.4 3.5 - 5.5 mmol/L LAB CHEMISTRY METHOD 01/09/2025 1:36 PM [facility] Chloride 106 96 - 110 mmol/L LAB CHEMISTRY METHOD 01/09/2025 1:36 PM [facility] CO2 29 21 - 32 mmol/L LAB CHEMISTRY METHOD 01/09/2025 1:36 PM [facility] Anion Gap 4 3 - 11 LAB CHEMISTRY METHOD 01/09/2025 1:36 PM [facility] Glucose 93 70 - 100 mg/dL LAB CHEMISTRY METHOD 01/09/2025 1:36 PM [facility] BUN 13 5 - 25 mg/dL LAB CHEMISTRY METHOD 01/09/2025 1:36 PM [facility] Creatinine 0.87 0.70 - 1.30 mg/dL LAB CHEMISTRY METHOD 01/09/2025 1:36 PM [facility] eGFR 93 >=60 mL/min/1. 73m2 LAB CHEMISTRY METHOD 01/09/2025 1:36 PM [facility] Comment:Calculation based on the??Chronic Kidney Disease Epidemiology Collaboration (CKD-EPI) equation refit??without adjustment for race. BUN/Creatinine Ratio 14.9 LAB CHEMISTRY METHOD 01/09/2025 1:36 PM [facility] Calcium 9.4 8.5 - 10.5 mg/dL LAB CHEMISTRY METHOD 01/09/2025 1:36 PM [facility] AST (SGOT) 20 10 - 42 unit/L LAB CHEMISTRY METHOD 01/09/2025 1:36 PM [facility] ALT (SGPT) 24 10 - 60 unit/L LAB CHEMISTRY METHOD 01/09/2025 1:36 PM [facility] Alkaline Phosphatase 84 42 - 121 unit/L LAB CHEMISTRY METHOD 01/09/2025 1:36 PM [facility] Total Protein 7.3 6.0 - 8.0 g/dL LAB CHEMISTRY METHOD 01/09/2025 1:36 PM [facility] Albumin 3.8 3.2 - 5.0 g/dL LAB CHEMISTRY METHOD 01/09/2025 1:36 PM [facility] Total Bilirubin 0.5 0.0 - 1.4 mg/dL LAB CHEMISTRY METHOD 01/09/2025 1:36 PM [facility] Blood Venous blood specimen / Unknown Venipuncture / Unknown 01/09/2025 9:16 AM EST 01/09/2025 9:16 AM EST Mukul Woodall MD LAB BLOOD ORDERABLES Gissel l Result [facility] [address] [place] [address], [place] [phone] * Colonoscopy (01/15/2016) Colonoscopy normal,abs tracted Anatomical Region Laterality Modality Other Historical Provider HEALTH MAINTENANCE Final Result * Hepatitis C Screening (08/18/2014) Hepatitis C Screening negative Historical Provider HEALTH MAINTENANCE Final Result from Last 3 Months or Most Recently Relevant to Health Maintenance Insurance [employer] - [place] MEDICARE ADVANTAGE Care Teams Parts Administrator Relationship Specialty Start Date End Date Mukul Woodall MD [address] [place] [id number] PCP - General Internal Medicine 08/28/20
--- OUTSIDE RECORDS SUMMARY | 2025-03-11 07:59 | XMS_ITS | Encounter Summary ---
Author Organization [facility] [place] [address] Care Team Providers Care Circulation Analyst Name Role Phone Mukul Woodall MD Primary Care Provider [phone] Reason for Visit * Reason Onset Date Comments Arm Injury 03/10/2025 Encounter Details Date Type Department Care Team (Late st Contact Info) Description 03/10/2025 Telephone Internal Medicine - [facility] [address] [place] [phone] Mukul Woodall MD [address] [place] [phone] Arm Injury Social History Tobacco Use Types Packs/Day Years Used Date Smoking Tobacco: Never Smokeless Tobacco: Never Alcohol Use Standard Drinks/Week Comments Yes 20 [...] ed Within the last 3 months, ho w many times did you visit the emergency [...] for your loved ones. For example, child care coordinator or elderly care for an older adult? [...] on file Sexual Orientation Not on file documented as of this encounter Progress Notes * Luz Davis LPN - 03/10/2025 4:33 PM EDT Spoke with pt he states he hurt his right bicep playing pickle ball on 03/08. Offered appt at [facility] butpt states he lives in [place] now so he will go to [facility]. * Deepali Alfredo - 03/10/2025 3:41 PM EDT Patient call requires triage: Symptoms patient is presenting: right arm bicep injury playing pickle ball How long has patient had these symptoms?: couple of days For ALL patients calling to schedule any appointment (routine, sick visit, follow up, consult, etc.) in the outpatient setting please ask the following questions: Do you have fever of higher than 101, sore throat with difficulty swallowing or severe shortness ofbreath? no If YES to any of these above symptoms, send a message to triage and do not book. Red dot. If no, an audio or video visit should be booked. Have you had close contact with someone with Coronavirus in the last 14 days? no Have you traveled abroad? no Have you traveled recently to another state outside of [place], [place], [place], [place], [place], [place], [place]? no o If yes, did you quarantine for 14 days or have a negative covid test? no If yes to any of the above, patient is not to be scheduled in office until after 14 day quarantine or negative covid test. If pain or injury related was it due to an accident at work or from a motor vehicle accident? If yes, date of accident/Injury: No If yes, gather 3rd green party insurance information Third Libertarian Information: not applicable PCP: Mukul Woodall MD Payor: [employer] - [place] MEDICARE ADVANTAGE / Plan: [employer] [place] MED[place]ARE [place]AGE / Product Type: *No Product type* / documented in this encounter Plan of Treatment Upcoming Encounters Date Type Department Care Team (Late st Contact Info) Description 07/03/2025 9:30 AM EDT [facility] [address] [place] [phone] Mukul Woodall MD [address] [place] [phone] 08/22/2025 8:20 AM EDT Office Visit Endocrinology - [place] [address] [place] [address] Libra Neff PA [address] [place] [address] 11/20/2025 8:00 AM EST Office Visit Pulmonolgy - [place] [address] [facility] [address] [place] [phone] Pat He MD [address] [address] documented as of this encounter Visit Diagnoses Not on filedocumented in this encounter Additional Health Concerns Assessment Noted Time PHQ-9 Depression Total Score: 0 12/27/19 25 10:38 AM EST documented as of this encounter Care Teams Circulation Analyst Relationship Specialty Start Date End Date Mukul Woodall MD [address] [place] [id number] PCP - General Internal Medicine 08/28/20 documented as of this encounter
--- OUTSIDE RECORDS SUMMARY | 2025-03-11 07:59 | XMS_ITS ---
Author Organization [facility] favian Baldwin Address [address] [place] [address] Care Team Providers Care Charter Coordinator Name Role Phone Mukul Woodall M.D. Primary Care Provider Unavailable Hima Gonzalez Unavailable [phone] Allergies No Known Allergies REASON FOR VISIT At Risk Footcare Medications Medication SIG (Take, Route, Frequency, Duration) Notes Start Date End Date Status Gabapentin 600 MG 1 tablet Orally Once [...] dry sterile dressing for 30 days Not-Taking Cephalexin 500 MG 1 capsule Orally amaya ry 6 hrs for 10 days Not-Taking Mupirocin Not-Taking Atorvastatin Calcium 40 MG 1 tablet Orally Once a day for 30 day(s) Active Social History Tobacco Use: Social History Observation [...] Additional Findings: Tobacco non-user Current no nsmoker Vital Signs Height 6ft 1in in 02/10/2025 Weight 275 lbs 02/10/2025 BMI 36.28 kg/m2 02/10/2025 Procedures Procedure Date Ordered Date Performed Result Body Sit e 58363-WIGNSOT NAIL, 1-5 02/10/2025 N/A 33733-BRKK SKIN LESIONS, OVER 4 02/10/2025 N/A N3779-[id number] DYSTROPHIC NAILS ANY # 02/10/2025 N/A Encounters Encounter Location Date Provider Diagnosis [facility] [place] [address] [address] 02/10/2025 Hima Galeanoier Tinea unguium B35.1 and Neuropathy, 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 Assessments Encounter Date Diagnosis (ICD Code) Assessment Notes Treatment Notes Treatment Clinical Notes Section Notes 02/10/2025 Tinea unguium (ICD-10 - B35.1) 02/10/2025 Neuropathy, alcoholic (ICD-10 - G62.1) 02/10/2025 Other Plan Of Treatment Pending Test Test Name Order Date 86084-ARZDKEA NAIL, 1-02/10/2025 41314-PNFN SKIN LESIONS, OVER 02/11/20 25 W6403-XGTNHIXH DYSTROPHIC NAILS ANY # Next Appt Details Follow Up: 3 Months, Reason: Provider Name:Hima Millerunier , 05/19/2025 04:00:00 PM, [address] [facility], [place] [address], [place], [address], Procedure Notes * Category Sub-Category Detail Notes Keratoma Treatment Parring or Cutting o f Benign Hyperkeratotic Lesion(s) (-57) More than 4 Lesions - Due to the at risk nature of the patients medical condition as documented in the exam findings, performance of this keratoderma treatment is medically necessary as its management by an unskilled/untrained nonprofessional would put this patients foot and overall health at risk. Therefore, the benign hyperkeratotic lesions, ( 6) in total, locations as stated and described in the exam ( SUB MTH (s) , 5 , B/L , SUB 5th MTBase , B/L , Plantar, Heel(s) , B/L ), were pared, and/or cut utilizing a sterile 15 blade, tissue nippers, and/or power dremel instrumentation by the physician of record - 91840 Debride Nails 1-5 Procedure: Due to the cli nical pathology outlined in the exam findings, performance of this nail treatment is medically necessary as its management by an unskilled/untrained nonprofessional would put this patients foot and overall health at risk. Therefore, debridement to affected nail(s), as described in exam ( T1 , T7 ), was performed exclusively by the physician of record to reduce/remove overall nail length, girth, thickness, subungual debris, and necrotic tissue, by manual and/or electrical means through the use of a nail nipper and/or dremel stylegrinder, to a more viable healthy nail plate or bed tissue 5 nails or fewer in number. Silver nitrate was used for any petechial bleeding as necessary. Definitive antifungal treatment options, both pharmaceutical and surgical, have been reviewed and discussed with the patient. The patient solely prefers the use of intermittent/as needed professional debridement services for their nail condition and understands that additional periodic treatments may be required as necessary to maintain effective symptomatic relief - 20150 Nail Reduction Nail Reduction (-27) Trimming o f all dystrophic nails - Due to the at risk nature of the patients medical condition as documented in the exam findings, performance of this nail treatment is medically necessary as its management by an unskilled/untrained nonprofessional would put this patients foot and overall health at risk. Therefore, the dystrophic nails, in locations as stated and described in the exam ( TA, T2, T3, T4, T5, T6, T8, T9 ), were debrided by the phisician of record to reduce/remove overall nail length and girth, by manual and electrical means with use of a nail nipper and/or dremel, to more viable healthy nail plate or bed tissue - G0127 Progress Notes * GUS Elieser RDOB:[birth year] (69 yo M)Acc No.[id number]:02/10/2025 Progress Note Patient:?Chi WEBERneth R Provider:?Hima Gonzalez DPM :1955???Age:69 Y???Sex:Male Abdiaziz e:02/10/2025 Address:[address] [place], [place] [id number] Pcp:Matty Bass Subjective: * Chief Complaints: * ???At Risk Footcare * HPI: ???At Risk footcare:?Pt States Last PCP Visit:?Date?01/03/2025 * ROS:?General/Constitutional:?Nausea?denies.?Vomiting?denies.?Hunger Thirst?denies.?Loss appetite?denies.?Chills?denies.?Fatigue?denies.?Fever?denies.?Night Sweats?denies.?Unexplained weight loss?denies.?Unexplained weight gain?denies.?HEENTM:?Dentures?denies.?Dizziness?denies.?Glasses/contacts?admits.?Retinopathy?de nies.?Blurred/double vision?denies.?TMJ?denies.?Discharge/drainage?denies.?Implants?denies.?Sore throat?denies.?Dental implants?denies.?Hard of hearing ?admits.?Difficulty chewing/swallowing/speaking?denies.?Nose bleeds?denies.?Sore mouth?denies.?Respiratory:?On Oxygen?denies.?Pneumonia/pleurisy?denies.?Bronchitis?denies.?Emphysema?denies.?C oughing?denies.?Cough blood?denies.?Shortness of breath?denies.?Wheezing?denies.?Cardiovascular:?Pacemaker?denies.?MVP?denies.?WPW?denies.?CHF?denies.?Heart attack?denies.?Septal defect?denies.?Rapid beat?denies.?Chest pain ?denies.?Atrial Fib.?denies.?Murmur/Palpitations?denies.?Gastrointestinal:?Hemorrhoids?denies.?Stomach/Abdominal pain?denies.?Dark blood stool?denies.?Irritable bowel ?denies.?Constipation?denies.?Diarrhea?denies.?Hematology:?Swelling?admits.?Clots?denies.?Varicose Veins?denies.?Bruising?denies.?Bleeding problem?denies.?Genitourinary:?Blood urine?denies.?Frequent/Painfu/urination/bladder control?denies.?Kidney stones?denies.?Infection (UTI)?denies.?Nephropathy?denies.?sex trans dis (STD)?denies.?Prostate?denies.?Musculoskeletal:?Hammertoes?denies.?Bunions?denies.?Back Pain?denies.?Muscle Cramps/ Resting?denies.?Muscle cramps / walking?denies.?Generalized aches and pains?admits.?Weakness?denies.?Integ.:?Sherman?denies.?Scars?denies.?Corns/calluses?admits.?Ingrown nails?admits.?Painful nails?denies.?Open Sores?denies.?Rashes?denies.?Neurologic:?Difficulty sleeping?denies.?Brain disorder?denies.?Numbness?admits.?Balance trouble?admits.?Confusion?denies.?Fainting/blackouts?denies.?Tingling?admits.?Tr emors?denies.? * Medical History:? * Surgical History:?No Surgica l History documented. * Hospitalization/Major Diagno stic Procedure:?[facility] Wound * Family History:?Mother: dece ased, diagnosed with Unspecified essential hypertension, Family history of arthritis.?Father: , foot problems, diagnosed with Other malignant neoplasm of unspecified site.?Paternal Grand Father: diagnosed with Unspecified cerebral artery occlusion with cerebral infarction.?Paternal uncle: diagnosed with Other malignant neoplasm of unspecified site.?Siblings: diagnosed with Other malignant neoplasm of unspecified site.? * Social History:?Tobacco Use:?Tobacco use other than smoking?Are you an other tobacco user??No ?Tobacco Control (Standard)?Tobacco use:?Nonsmoker ?Additional Findings: Tobacco non-user?Current nonsmoker ???Drugs/Alcohol:?Drugs?Have you used drugs other than those for medical reasons in the past 12 months??Yes daily gummies before bed ?Alcohol Screen?Did you have a drink containing alcohol in the past year??No ?Points?0 ?Interpretation?Negative ???Miscellaneous:?Caffeine: yes, 1-2 cups per day. ?Exercise: yes, walking, cycling. ?Marital status: single. ?Occupation: Retired, Works Part-time @ [employer]. * Medications:?TakingAtorvasta tin Calcium 40 MG Tablet 1 tablet Orally Once a day Gabapentin 600 MG Tablet 1 tablet Orally Once a day Gabapentin 300 MG Capsule 1 capsule Orally Once a day Losartan Potassium 100 MG Tablet 1 tablet Orally Once a day Ciclopirox Olamine 0.77 % Cream 1 application Externally Twice a day to feet including between the toes Taking Atorvastatin Calcium 40 MG Tablet 1 tablet Orally Once a day Taking Gabapentin 600 MG Tablet 1 tablet Orally Once a day Taking Gabapentin 300 MG Capsule 1 capsule Orally Once a day Taking Losartan Potassium 100 MG Tablet 1 tablet Orally Once a day Taking Ciclopirox Olamine 0.77 % Cream 1 application Externally Twice a day to feet including between the toes Not-Taking/PRNIodosorb 0.9 % Gel as directed Externally Apply to ulceration daily with dry sterile dressing Cephalexin 500 MG Capsule 1 capsule Orally every 6 hrs Mupirocin Medication List reviewed and reconciled with the patientNot-Taking/PRN Iodosorb 0.9 % Gel as directed Externally Apply to ulceration daily with dry sterile dressing Not-Taking/PRN Cephalexin 500 MG Capsule 1 capsule Orally every 6 hrs Not-Taking/PRN Mupirocin Medication List reviewed and reconciled with the patient * Allergies:?N.K.D.A.yes[Aller gies Verified] Objective: * Vitals:?Ht: 6ft 1in, Wt:275, BMI:36.28, Shoe size: 12, Ht-cm: 185.42 cm, Wt-k.74 kg. * Examination: ???Neurological: ?SENSORY:?Neurological exam demonstrates, reduced light touch sensation, reduced sharp/dull discrimination , reduced vibration sensation, in a stocking fashion, B/L, 5.07 monofilament test performed at plantar aspects of 5 varied sites per foot shows sensation, reduced, B/L.?Nails: ?NAILS are:?Elongated, overgrown, dystrophic, lytic, greater than 3mm thick, discolored and friable with crumbly malodorous subungual debris , T1 , T7 , all other nails not described with characteristics as possessing mycosis are elongated, overgrown, and dystrophic ( TA, T2, T3, T4, T5, T6, T8, T9?).?Dermatologic: ?SKIN FINDINGS:?Skin exam reveals Keratotic lesion(s) located at , SUB MTH (s) , 5 , B/L , SUB 5th MTBase , B/L , Plantar, Heel(s) , B/L.? Assessment: * Assessment: 1.?Tinea unguium - B35.1???2 .?Neuropathy, alcoholic - G62.1 (Primary)??? Plan: * Treatment: * Procedures:?Debride Nails 1-5:?Procedure:?Due to the clinical pathology outlined in the exam findings, performance of this nail treatment is medically necessary as its management by an unskilled/untrained nonprofessional would put this patients foot and overall health at risk. Therefore, debridement to affected nail(s), as described in exam (?T1?,?T7?), was performed exclusively by the physician of record to reduce/remove overall nail length, girth, thickness, subungual debris, and necrotic tissue, by manual and/or electrical means through the use of a nail nipper and/or dremel stylegrinder, to a more viable healthy nail plate or bed tissue 5 nails or fewer in number. Silver nitrate was used for any petechial bleeding as necessary. Definitive antifungal treatment options, both pharmaceutical and surgical, have been reviewed and discussed with the patient. The patient solely prefers the use of intermittent/as needed professional debridement services for their nail condition and understands that additional periodic treatments may be required as necessary to maintain effective symptomatic relief - 92748.?Keratoma Treatment:?Parring or Cutting of Benign Hyperkeratotic Lesion(s)?(-57) More than 4 Lesions - Due to the at risk nature of the patients medical condition as documented in the exam findings, performance of this keratoderma treatment is medically necessary as its management by an unskilled/untrained nonprofessional would put this patients foot and overall health at risk. Therefore, the benign hyperkeratotic lesions, ( 6) in total, locations as stated and described in the exam (?SUB MTH (s)?,?5?,?B/L?,?SUB 5th MTBase?,?B/L?,?Plantar,?Heel(s)?,?B/L?), were pared, and/or cut utilizing a sterile 15 blade, tissue nippers, and/or power dremel instrumentation by the physician of record - 51652.?Nail Reduction:?Nail Reduction?(-27) Trimming of all dystrophic nails - Due to the at risk nature of the patients medical condition as documented in the exam findings, performance of this nail treatment is medically necessary as its management by an unskilled/untrained nonprofessional would put this patients foot and overall health at risk. Therefore, the dystrophic nails, in locations as stated and described in the exam (?TA, T2, T3, T4, T5, T6, T8, T9?), were debrided by the phisician of record to reduce/remove overall nail length and girth, by manual and electrical means with use of a nail nipper and/or dremel, to more viable healthy nail plate or bed tissue - G0127.? * Procedure Codes:?G0127 CHRISTINA ING DYSTROPHIC NAILS ANY #, Modifiers: XS 40650 DEBRIDE NAIL, 1-5, Modifiers: XS 55581 TRIM SKIN LESIONS, OVER 4, Modifiers: XS * Follow Up:?3 Months * Images: * Sign off status: Completed true * Provider:?Hima Gonzalez DPM Date:?2024 Generated for Roberto garcia/Sadi/Jeannie on:?03/11/2025 07:58 AM EDT History and Physical Notes * HPI (History of Present Illness) Category Sub-Category Detail Notes Category Not es At Risk footcare Pt States Last PCP Visit: Date: Examination Category Sub-Category Detail Notes Category Not es Neurological SENSORY: Neurological exa m demonstrates, reduced light touch sensation, reduced sharp/dull discrimination , reduced vibration sensation, in a stocking fashion, B/L, 5.07 monofilament test performed at plantar aspects of 5 varied sites per foot shows sensation, reduced, B/L Dermatologic SKIN FINDINGS: Skin exam reveal s Keratotic lesion(s) located at , SUB MTH (s) , 5 , B/L , SUB 5th MTBase , B/L , Plantar, Heel(s) , B/L Nails NAILS are: Elongated, overg rown, dystrophic, lytic, greater than 3mm thick, discolored and friable with crumbly malodorous subungual debris , T1 , T7 , all other nails not described with characteristics as possessing mycosis are elongated, overgrown, and dystrophic ( TA, T2, T3, T4, T5, T6, T8, T9 )
--- OUTSIDE RECORDS SUMMARY | 2025-03-11 07:59 | XMS_ITS ---
Author Organization [facility] favian [place] Address [address] [facility] [place] [address] Care Team Providers Care Drapery And Upholstery Estimator Name Role Phone Mukul Woodall M.D. Primary Care Provider Unavailable Hima Gonzalez Unavailable [phone] Allergies No Known Allergies REASON FOR VISIT At Risk Footcare, Skin Problem Medications Medication SIG (Take, Route, Frequency, Duration) Notes Start Date End Date Status Cephalexin 500 MG 1 capsule Orally amaya ry 6 hrs for 10 days Not-Taking Mupirocin Not-Taking Gabapentin 600 MG 1 tablet Orally Once a day for 30 days Active Atorvastatin Calcium 40 MG 1 tablet Orally Once a day for 30 day(s) Active Gabapentin 300 MG 1 capsule Orally Onc e a day Active Ciclopirox Olamine 0.77 % 1 application Externally Twice a day to feet including between the toes for 30 days Active Losartan Potassium 100 MG 1 tablet Orall y Once a day for 30 day(s) Active Iodosorb 0.9 % as directed External [...] (Standard) Question Answer Notes Tobacco use: Nonsmoker Vital Signs Height 6ft 1in in 11/11/2024 Weight 275 lbs 11/11/2024 BMI 36.28 kg/m2 11/11/2024 Blood pressure systolic 130 mm Hg 11/11/19 25 Blood pressure diastolic 71 mm Hg 025 Procedures Procedure Date Ordered Date Performed Result Body Sit e 80363-EIPPYDV NAIL, 1-5 11/11/2024 N/A 28151-BUHF SKIN LESIONS, OVER 4 11/11/2024 N/A W8179-BBYXVZPV DYSTROPHIC NAILS ANY # 11/11/2024 N/A Encounters Encounter Location Date Provider Diagnosis [facility] [place] [address] [place] [id number] 11/11/2024 Hima Gonzalez Tinea unguium B35.1 ; Neuropathy, 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 and Tinea pedis of both feet B35.3 Assessments Encounter Date Diagnosis (ICD Code) Assessment Notes Treatment Notes Treatment Clinical Notes Section Notes 11/11/2024 Tinea unguium (ICD-10 - B35.1) 11/11/2024 Neuropathy, alcoholic (ICD-10 - G62.1) 11/11/2024 Tinea pedis of both feet (ICD-10 - B35.3) 11/11/2024 Other Plan Of Treatment Pending Test Test Name Order Date 98457-UFUMGDN NAIL, 1-5 11/11/2024 11437-HDIC SKIN LESIONS, OVER 4 11/11/19 25 F1162-MAJGXCSY DYSTROPHIC NAILS ANY # Next Appt Details Follow Up: 3 Months, Reason: Provider Name:Hima Gonzalez , 05/19/2025 04:00:00 PM, [address] [facility], [place] [address], [place], [address], Procedure Notes * Category Sub-Category Detail Notes [...] instrumentation by the physician of record - 06003 Debride Nails 1-5 Procedure: Due to the [...] necessary to maintain effective symptomatic relief - 31252 Nail Reduction Nail Reduction (-27) Trimming o [...] TA, T2, T3, T4, T5, T6, T8, T9), were debrided by the phisician of record to reduce/remove overall nail length and girth, by manual and electrical means with use of a nail nipper and/or dremel, to more viable healthy nail plate or bed tissue - G0127 Progress Notes * Elieser WEBER RDOB:[birth year] (68 yo M)Acc No.[id number]:11/11/2024 Progress Note Patient:?Elieser WEBER R Provider:?Hima Gonzalez DPM :1955???Age:68 Y???Sex:Male Abdiaziz e:11/11/2024 Address:[address] [place] [address] [facility] Pcp:Matty Bass Subjective: * Chief Complaints: * ???At Risk FootcareSkin Prob messi * HPI: ???At Risk footcare:?Pt States Last PCP Visit:?Date?07/04/2024 ???Skin problems:?Treatments:?Medication (Ciclopirox Olamine 0.77 Cream), states adherence to recommended treatment application.? * ROS:?General/Constitutional:?Nausea?denies.?Vomiting?denies.?Hunger Thirst?denies.?Loss appetite?denies.?Chills?denies.?Fatigue?denies.?Fever?denies.?Night Sweats?denies.?Unexplained weight loss?denies.?Unexplained [...] l History documented. * Hospitalization/Major Diagno stic Procedure:?[facility] Wound * Family History:?Mother: dece ased, diagnosed [...] other tobacco user??No ?Tobacco Control (Standard)?Tobacco use:?Nonsmoker ???Drugs/Alcohol:?Drugs?Have you used drugs other than those for medical reasons in the past 12 months??Yes daily gummies before bed ?Alcohol Screen?Did you have a drink containing alcohol in the past year??No ?Points?0 ?Interpretation?Negative ???Miscellaneous:?Caffeine: yes, 1-2 cups per day. ?Exercise: yes, walking, cycling. ?Marital status: single. ?Occupation: Retired, Works Part-time @ [employer]. * Medications:?TakingAtorvasta tin Calcium 40 MG Tablet [...] and reconciled with the patient * Allergies:?N.K.D.A.yes[Aller leticia Verified] Objective: * Vitals:?Ht: 6ft 1in, Wt:275, BMI:36.28, Shoe size: 12, BP:130/71mm Hg, Ht-cm: 185.42 cm, Wt-k.74 kg. * Examination: [...] , B/L , Plantar, Heel(s) , B/L , Skin shows approximately 70-80 percent LESS, sign(s) of, erythema, scaling, in a moccasin fashion, no fissure(s) present, B/L.? Assessment: * Assessment: 1.?Tinea unguium - B35.1???2 .?Neuropathy, alcoholic - G62.1 (Primary)???3.?Tinea pedis of both feet - B35.3???Specify :Acute problem, Stable Response to treatment - Improvement??? Plan: * Treatment: * Procedures:?Debride Nails 1-5:?Procedure:?Due [...] necessary to maintain effective symptomatic relief - 04669.?Keratoma Treatment:?Parring or Cutting of Benign Hyperkeratotic Lesion(s)?(-57) [...] instrumentation by the physician of record - 37577.?Nail Reduction:?Nail Reduction?(-27) Trimming of all dystrophic nails [...] (?TA, T2, T3, T4, T5, T6, T8, T9), were debrided by the phisician of georgina to reduce/remove overall nail length and girth, by manual and electrical means with use of a nail nipper and/or dremel, to more viable healthy nail plate or bed tissue - G0127.? * Procedure Codes:?G0127 CHRISTINA ING DYSTROPHIC NAILS ANY #, Modifiers: XS 32664 DEBRIDE NAIL, 1-5, Modifiers: XS 97004 TRIM SKIN LESIONS, OVER 4, Modifiers: XS * Preventive Medicine:? ??Counseling:?Discussion:?-12: Office or other outpatient visit for the evaluation and management of an established patient, which required a medically appropriate history and/or examination and STRAIGHTFORWARD level of MEDICAL DECISION MAKING, 1 SELF-LIMITED OR MINOR PROBLEM, MINIMAL- NO AMOUNT/COMPLEXITY OF DATA TO BE REVIEWED/ANALYZED, AND MINIMAL RISK OF COMPLICATION/MORBIDITY. The visit on the day of the encounter encompassed interpreting the data and educating the patient as to the nature of their condition, treatment options available according to their individual PMH, meds, allergies, and overall health/living conditions, as well as any potential risks or complications that may occur from a failure to adhere to, and participate in, the recommended course of therapy. The discussion included a complete verbal, and/or written explanation of the examination results, any x-rays taken, the proposed diagnosis, and outline of the treatment plan. A schedule for future care needs was also explained. The patient verbalized an understanding of the instructions at this time and agreed to be an active participant in their treatment. If the patient should think of any questions or concerns after the visit, I have encouraged the patient to call the office.?Tinea Pedis:?Given recent successful results to treatment, The patient is to cont the rx cream as directed.? ??Screening/Special Tests:?Fall Risk?Screening:?No falls in the past year ?FALLS: Screening for Future Fall Risk?Have you had any falls with injury in the past year??No * Follow Up:?3 Months * Images: * Sign off status: Completed true * Provider:?Hima Gonzalez DPM Date:?2024 Generated for Roberto garcia/Sadi/Jeannie on:?03/11/2025 07:58 AM EDT History and Physical Notes * HPI (History of Present Illness) Category Sub-Category Detail Notes Category Not es Skin problems Treatments: Medication (Cicl opirox Olamine 0.77 Cream), states adherence to recommended treatment application At Risk footcare Pt States Last PCP Visit: Date: 07/04/2024 Examination Category Sub-Category Detail Notes Category Not [...] , B/L , Plantar, Heel(s) , B/L , Skin shows approximately 70-80 percent LESS, sign(s) of, erythema, scaling, in a moccasin fashion, no fissure(s) present, B/L Nails NAILS are: Elongated, overg rown, dystrophic, lytic, greater than 3mm thick, discolored and friable with crumbly malodorous subungual debris , T1 , T7 , all other nails not described with characteristics as possessing mycosis are elongated, overgrown, and dystrophic ( TA, T2, T3, T4, T5, T6, T8, T9 )
--- NOTE | 2025-03-11 08:06 | AM.OFFWIN_ITS ---
Intake Vital Signs 03/11/25 08:07 Height 6 ft 1 in Weight 287 lb BMI 37.9 BP 130/64 Blood Pressure Location Lt brachial Position Sitting Respiration 17 Pulse 52 Pulse Source Pulse Oximeter Temp 98.4 F Temp Source Oral Pulse Oximetry (%) 96 Oxygen Delivery Method Room Air Intake Visit Reasons: EP Bicep injury Intake Note: Pt is here today c/o Rt bicep pain due to playing pickle ball x1week Patient Tobacco Use Status: Never used Tobacco Allergies No Known Allergies Allergy (Verified 03/11/25 08:09) HPI HPI Comments History of Present Illness Details This is a right hand dominant, 69-year-old male with a past medical history of hypertension, hyperlipidemia peripheral neuropathy presenting for evaluation of right bicep pain that he noted 1 week ago. Patient was playing pickleball when he suddenly had pain in the center of his right bicep after hitting the ball. Patient denies any falls or contusion involving his right bicep. Patient has been taking Tylenol for relief of his discomfort. Patient noticed bruising overlying his right bicep on Monday. Patient has been able to continue playing pickleball throughout. [facility] Social History Patient Tobacco Use Status: Never used Tobacco Review of Systems Const All systems reviewed & are unremarkable except as noted in HPI and below Reports no additional complaints Eyes Reports no additional complaints ENT Reports no additional complaints Card Reports no additional complaints Resp Reports no additional complaints GI Reports no additional complaints Reports no additional complaints Musc Reports as per HPI and Reports other (right bicep pain) Skin/Breast Reports system reviewed and no additional complaints, except as documented Neuro Reports no additional complaints and Denies radicular pain Psych Reports no additional complaints Endo Reports no additional complaints Elpidio/Lymph Reports no additional complaints Aller/Immun Reports no additional complaints Physical Exam Vital Signs: Last Vital Signs Temp 98.4 F 03/11/25 08:07 Pulse 52 03/11/25 08:07 Resp 17 03/11/25 08:07 BP 130/64 03/11/25 08:07 Pulse Ox 96 03/11/25 08:07 Oxygen Delivery Method Room Air 03/11/25 08:07 BMI result Body Mass Index 37.9 Const General: cooperative, healthy appearing, comfortable, no acute distress, well developed, alert and awake Nutritional Appearance: well nourished Orientation/consciousness: patient oriented x3 Limitations: no limitations Skin Other: There is chronic appearing ecchymosis overlying the right bicep Neuro General: patient oriented x3 Extrem Other: There is no Lukas deformity or right biceps weakness on examination, no pain to palpation of the anterior right shoulder and ROM intact right shoulder and right olecranon, no point tenderness overlying the right biceps, no clinical evidence of a proximal biceps tendon rupture or distal biceps tendon rupture. General: Yes full ROM, Yes capillary refill normal (RUE), No edema, No muscle atrophy and No muscle hypertrophy Right upper extremity: full ROM and normal capillary refill; joint enlargement noted Psych Appearance: grossly normal Mental Status: mental status grossly normal Insight: Good insight present (Psych) Judgement: Good judgement present (Psych) Assessment & Plan Assessment & Plan (1) Tendinopathy of right biceps tendon: Comment: No clinical evidence of right biceps tendon tear. Patient will be encouraged to take Aleve twice daily as needed and use ice after activity. Code(s): M67.921 - Unspecified disorder of synovium and tendon, right upper arm Plan: Aleve b.i.d., ice at 20 minute intervals following physical activity as needed. Coding Level of Care Code Est Pt Level 3 (80902) Diagnoses Tendinopathy of right biceps tendon M67.921 Time Spent (min) 20
[2025-03-11 08:07] VITALS: BP 130/64; PULSE 52; RESP 17; TEMP 36.9; O2SAT 96; BMI 37.9
== END 2025-03-11 08:47 | disposition home or self-care (01) ==
PROVIDERS: PCP Internal Medicine; Visit Provider Physician Assistant
DX: M67.921 Unspecified disorder of synovium and tendon, right upper arm (principal)

== ENCOUNTER → 2025-03-11 07:55 | Outpatient (BNVA) | payer MEDICARE, SELFPAY | PROVIDERS: PCP Internal Medicine; Visit Provider Physician Assistant | DX: M67.921 Unspecified disorder of synovium and tendon, right upper arm (principal) | CPT/HCPCS: 99212 ==

== ENCOUNTER 2025-06-23 15:19 | Outpatient (AMB) | payer MEDICARE, SELFPAY ==
--- NOTE | 2025-06-23 15:26 | A.OFFVIS_ITS ---
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 His symptoms were mostly pain, and mostly at night, better with gabapentin. Neuropathy pain was better but he suffering from bony foot problems and was seeing a rotor casting machine operator. His repeat EMG/NCS did not reveal any changes and labs for neuropathy were unremarkable. The patient is a 69-year-old male presenting with management inquiries related to a recent rupture of the left Achilles tendon due to playing pickleball. The injury currently requires the use of a protective boot, mainly when leaving the house, as well as use of a scooter for extended walking. Current rehabilitation efforts through physical therapy are showing positive results, though not yet yielding complete recovery. He is on gabapentin to assist with sleep, taking three 300 mg doses at night, and questions the legitimacy of claims linking the medication to unilateral neglect. Though he notes occasional dizziness, he describes no other concerning side effects and is accustomed to the medication. Additional medications include atorvastatin and losartan, disclosed without reported complications. [facility] Medical History (Updated 06/23/25 @ 15:28 by Sonya Henson MD) H/O alcohol abuse Alcohol abuse Peripheral neuropathy Social History Patient Tobacco Use Status: Never used Tobacco Review of Systems Const Details: - Musculoskeletal: Reports left Achilles tendon rupture, managed with a supportive boot and physical therapy; ambulation improved but not fully recovered. - Neurological: Reports dizziness secondary to gabapentin; denies unilateral neglect symptoms. - Cardiac: Denies complications from atorvastatin and losartan usage. - General: Denies need for medication refill. Physical Exam Neuro Other: Mental Status: Alert and oriented to person, place, and time. Normal attention. Normal spontaneous speech, fluency, and comprehension. No obvious issues with mood and memory. Affect is appropriate. Cranial Nerves: CN II: Visual watson full to confrontation, visual acuity intact. CN III, IV, : Pupils equal, round, reactive to light and accommodation. Extraocular movements are normal. CN V: Facial sensation is normal. CN VII: Facial movements symmetrical. CN VIII: Hearing intact to bedside conversation is normal. CN IX, X: Palate elevates symmetrically. CN XI: Shoulder shrug and head turn symmetrical. CN XII: Tongue midline without atrophy or fasciculations. Extrapyramidal: Full facial expressions and blinking. No rigidity. Movements are appropriate with no tremor or abnormality. Speech: Normal; no dysarthria or tremor. Assessment & Plan Assessment & Plan (1) Peripheral neuropathy: Comment: NCV/EMG LE (office) Severe sensory and motor chronic peripheral neuropathy affecting lower extremities. There is no significant difference from the study in 2020. 05/25/23. 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 Code(s): G62.9 - Polyneuropathy, unspecified Category: Medical Qualifiers: Peripheral neuropathy type: polyneuropathy, unspecified Qualified Code(s): G62.9 - Polyneuropathy, unspecified Plan Impression: Severe axonal sensory and motor chronic peripheral neuropathy of unknown etiology Rec: Gabapentin 300mg 2-3 at night for pain relief and sleep Coding Level of Care Code Est Pt Level 4 (38190) Diagnoses Peripheral polyneuropathy G62.9 Peripheral neuropathy type: polyneuropathy, unspecified
--- OUTSIDE RECORDS SUMMARY | 2025-06-23 15:53 | XMS_ITS | Clinical Summary ---
Author Organization Patient Business Ser [facility] Address [address] [place] [address] Care Team Providers Care Malt Loader Name Role Phone Mukul Woodall MD Primary Care Provider [phone] Allergies Active Allergy Reactions Criticality Noted Date Comments Lisinopril Other Medium 06/05/2009 Cough due to lisinopril Medications senna (SENOKOT) 8.6 mg tablet Take 1 tablet (8.6 mg total) by mouth 1 (one) time each day. 07/04/2024 Active MEN'S MULTI-VITAMIN ORAL Take 1 tablet by mouth 1 (one) time each day. Active TURMERIC ORAL Take by mouth 1 (one) time each day. Active UNABLE TO FIND Inhale by mouth. Active gabapentin (NEURONTIN) 300 mg capsule Take 2 capsules (600 mg total) by mouth at bedtime. 60 capsule 2 11/07/2024 Active atorvastatin (LIPITOR) 40 mg tablet TAKE 1 TABLET ONCE DAILY 90 tablet 04/01/2025 Active losartan (COZAAR) 100 mg tablet TAKE 1 TABLET ONCE DAILY 90 tablet 04/01/2025 Active Active Problems Problem Noted Date Diagnosed Date Prediabetes 02/15/2024 Multiple thyroid nodules 07/27/2023 Lumbar degenerative disc disease 07/06/2023 Obesity (BMI 30-39.9) 09/07/2018 Obstructive sleep apnea syndrome 09/07/2018 Neuropathy of both feet 11/17/2017 Varicose vein of leg 11/17/2017 Essential hypertension, benign 04/26/2007 Hyperlipidemia 04/12/2007 Encounters Date Type Department Care Team Description 06/10/2025 Telephone Internal Medicine - [address] [place] [id number] Mukul Woodall MD Referral 06/06/2025 Telephone Internal Medicine - [address] [place] [id number] Mukul Woodall MD Referral 04/16/2025 9:30 AM EDT Office Visit Walk-In Clinic - [address] [place] [address] Kelly Canas NP Acute left ankle pain (Primary Dx) 04/15/2025 9:01 PM EDT - 04/15/2025 11:37 PM EDT Emergency [facility] Emergency [address] [place] [id number] Discharge Disposition: Home or Self Care from Last 3 Months Immunizations Name Administration [...] care for your loved ones. For example, early childhood aide classroom or elderly care for an older adult? [...] Sign Reading Time Taken Comments Blood Pressure 113/50 04/16/2025 9:20 AM EDT Pulse 62 04/16/2025 9:20 AM EDT Temperature 36.7 C (98 F) 04/16/2025 9:20 AM EDT Respiratory Rate 16 04/15/2025 9:06 PM EDT Oxygen Saturation 98% 04/16/2025 9:20 AM EDT Inhaled Oxygen Concentration - - Weight 125 kg (275 lb) 04/15/2025 9:06 PM EDT Height 185.4 cm (6' 1 ) 04/15/2025 9:06 PM EDT Body Mass Index 36.28 04/15/2025 9:06 PM EDT Plan of Treatment Upcoming Encounters Date Type Department Care Team (Late st Contact Info) Description 07/03/2025 9:30 AM EDT Office Visit Internal Medicine - [facility] [address] [place] [address] Mukul Woodall MD [address] [place] [address] 08/01/2025 7:15 AM EDT Appointment Radiology Department - [address] [address] 11/20/2025 8:00 AM EST Office Visit Pulmonolgy - [place] [address] [facility] [address] [place] [phone] Pat He MD [address] [facility] [address] [place] [address] Health Maintenance Due Date Last Done Comments Medicare Annual Wellness Visit 04/05/2020 Falls Risk Assessment 2020 COVID-19 Vaccine ( season) 2025 08/22/2024, 09/14/2023, 08/13/2022, Additional history exists Influenza Vaccine (#1) 2025 , 09/14/2023, 08/07/2023, Additional history exists Social Influencers of Health Screening 12/27/2025 12/27/2024 Hypertension/CHF/CAD Annual BMP Blood Test 01/09/2026 01/09/2025, 07/04/2024, 07/04/2024 Colorectal Cancer Screening: Colonoscopy 01/14/2026 01/15/2016, 01/15/2016 Cholesterol Screening (Lipid Panel) 01/09/2030 01/09/2025, 01/05/2024 DTaP,Tdap,and Td Vaccines (4 - Td or Tdap) 08/28/2030 08/28/2020, 11/13/2009, 09/29/2000 RSV Immunization Adult Patients (1 - 1-dose 75+ series) 2030 Hepatitis C Screening Completed 08/18/2014, 014 Zoster Vaccines Completed 05/23/2019, 02/09/2019 Depression Screening Completed 12/27/2024 Pneumococcal Vaccine: 50+ Years Completed 01/03/2025, 03/10/2023, [...] Procedure Name Priority Date/Time Associated Diagnosis Comments XR FOOT 3+ VIEWS LEFT STAT 04/15/2025 9:17 PM EDT COMPREHENSIVE METABOLIC PANEL Routine 01/09/2025 9:16 AM EST Routine general medical examination at a health care facility LIPID PANEL WITH REFLEX TO DIRECT LDL Routine 01/09/2025 9:16 AM EST Routine general medical examination at a health care facility COLONOSCOPY Routine 01/15/2016 HEPATITIS C SCREENING Routine 08/18/2014 from Last 3 Months or Most Recently Relevant to Health Maintenance Results * XR Foot 3+ Views Left (04/15/2025 9:17 PM EDT) Anatomical Region Laterality Modality Lower Extremities, Foot Left Radiogra phic Imaging 04/16/2025 9:00 AM EDT Impressions 04/16/2025 9:00 AM EDT FINDINGS/IMPRESSION: No acute fracture or dislocation. Severe degenerative changes at the 1st metatarsophalangeal joint and 1st interphalangeal joint. Large dorsally projecting spurs at the 1st metatarsophalangeal joint. Soft tissue swelling throughout the great toe. -------- FINAL REPORT -------- Dictated By: FUNMILAYO HOPE Dictated Date: 04/16/2025 09:00 ET Assigned Physician: FUNMILAYO HOPE Reviewed and Electronically Signed By: FUNMILAYO HOPE Signed Date: 04/16/2025 09:00 ET Workstation ID: [id number] Transcribed By: Self Edit Transcribed Date: 04/16/2025 09:00 ET Narrative 04/16/2025 9:00 AM EDT XR FOOT 3+ VIEWS LEFT INDICATION: Pain TECHNIQUE: XR FOOT 3+ VIEWS LEFT COMPARISON: No priors available. Procedure Note Funmilayo Hope MD - 04/16/2025 XR FOOT 3+ VIEWS LEFT INDICATION: Pain TECHNIQUE: XR FOOT 3+ VIEWS LEFT COMPARISON: No priors available. IMPRESSION: FINDINGS/IMPRESSION: No acute fracture or dislocation. Severedegenerative changes at the 1st metatarsophalangeal joint and 1stinterphalangeal joint. Large dorsally projecting spurs at the 1stmetatarsophalangeal joint. Soft tissue swelling throughout the great toe. -------- FINAL REPORT -------- Dictated By: FUNMILAYO HOPE Dictated Date: 04/16/2025 09:00 ET Assigned Physician: FUNMILAYO HOPE Reviewed and Electronically Signed By: FUNMILAYO HOPE Signed Date: 04/16/2025 09:00 ET Workstation ID: [id number] Transcribed By: Self Edit Transcribed Date: 04/16/2025 09:00 ET us Jenelle Aram Dooley Nolasco DO IMG XR PROCEDURES Final R esult * Lipid panel with reflex to direct LDL (01/09/2025 9:16 AM EST) Cholesterol 129 0 - 200 mg/dL LAB CHEMISTRY METHOD 01/09/2025 1:36 PM EST [facility] Triglycerides 82 0 - 150 mg/dL LAB CHEMISTRY METHOD 01/09/2025 1:36 PM EST [facility] HDL 50 >=40 mg/dL LAB CHEMISTRY METHOD 01/09/2025 1:36 PM [facility] LDL Calculated 63 0 - 100 mg/dL LAB CHEMISTRY METHOD 01/09/2025 1:36 PM [facility] VLDL Cholesterol Nav 16.4 mg/dL LAB CHEMISTRY METHOD 01/09/2025 1:36 PM [facility] Non HDL Chol. (LDL+VLDL) 79 <145 mg/dL LAB CHEMISTRY METHOD 01/09/2025 1:36 PM [facility] Chol/HDL Ratio 2.6 0.0 - 4.4 LAB CHEMISTRY METHOD 01/09/2025 1:36 PM [facility] Blood Venous blood specimen / Unknown Venipuncture / Unknown 01/09/2025 9:16 AM EST 01/09/2025 9:16 AM EST Mukul Woodall MD LAB BLOOD ORDERABLES Gissel l Result [facility] [address] [place] [address], * Comprehensive metabolic panel (01/09/2025 9:16 AM EST) Sodium 139 133 - 145 mmol/L LAB CHEMISTRY METHOD 01/09/2025 1:36 PM [facility] Potassium 4.4 3.5 - 5.5 mmol/L LAB CHEMISTRY METHOD 01/09/2025 1:36 PM [facility] Chloride 106 96 - 110 mmol/L LAB CHEMISTRY METHOD 01/09/2025 1:36 PM [facility] CO2 29 21 - 32 mmol/L LAB CHEMISTRY METHOD 01/09/2025 1:36 PM [facility] Anion Gap 4 3 - 11 LAB CHEMISTRY METHOD 01/09/2025 1:36 PM [facility] Glucose 93 70 - 100 mg/dL LAB CHEMISTRY METHOD 01/09/2025 1:36 PM [facility] BUN 13 5 - 25 mg/dL LAB CHEMISTRY METHOD 01/09/2025 1:36 PM [facility] Creatinine 0.87 0.70 - 1.30 mg/dL LAB CHEMISTRY METHOD 01/09/2025 1:36 PM [facility] eGFR 93 >=60 mL/min/1. 73m2 LAB CHEMISTRY METHOD 01/09/2025 1:36 PM [facility] Comment:Calculation based on the Chronic Kidney Disease Epidemiology Collaboration (CKD-EPI) equation refit without adjustment for race. BUN/Creatinine Ratio 14.9 LAB CHEMISTRY METHOD 01/09/2025 1:36 PM [facility] Calcium 9.4 8.5 - 10.5 mg/dL LAB CHEMISTRY METHOD 01/09/2025 1:36 PM [facility] AST (SGOT) 20 10 - 42 unit/L LAB CHEMISTRY METHOD 01/09/2025 1:36 PM [facility] ALT (SGPT) 24 10 - 60 unit/L LAB CHEMISTRY METHOD 01/09/2025 1:36 PM [facility] Alkaline Phosphatase 84 42 - 121 unit/L LAB CHEMISTRY METHOD 01/09/2025 1:36 PM [facility] Total Protein 7.3 6.0 - 8.0 g/dL LAB CHEMISTRY METHOD 01/09/2025 1:36 PM [facility] Albumin 3.8 3.2 - 5.0 g/dL LAB CHEMISTRY METHOD 01/09/2025 1:36 PM [facility] Total Bilirubin 0.5 0.0 - 1.4 mg/dL LAB CHEMISTRY METHOD 01/09/2025 1:36 PM [facility] Blood Venous blood specimen / Unknown Venipuncture / Unknown 01/09/2025 9:16 AM EST 01/09/2025 9:16 AM EST Mukul Woodall MD LAB BLOOD ORDERABLES Gissel l Result [facility] [address] [place] [address], * Colonoscopy (01/15/2016) Colonoscopy normal,abs tracted Anatomical Region Laterality Modality Other Historical Provider HEALTH MAINTENANCE Final Result * Hepatitis C Screening (08/18/2014) Hepatitis C Screening negative Historical Provider HEALTH MAINTENANCE Final Result from Last 3 Months or Most Recently Relevant to Health Maintenance Insurance [employer] [place] MEDICARE [employer]VANTAGE Care Teams Malt Loader Relationship Specialty Start Date End Date Mukul Woodall MD [address] [id number] PCP - General Internal Medicine 08/28/20
--- OUTSIDE RECORDS SUMMARY | 2025-06-23 15:53 | XMS_ITS ---
Author Name [facility] Organization Unknown Care Team Organization Name Specialty Phone Email Start Date End Da te [facility] Mukul Woodall Primary Care 09/13/2022 06/24/2024
--- OUTSIDE RECORDS SUMMARY | 2025-06-23 15:53 | XMS_ITS | Patient Health Record ---
Author Organization [facility] Laurie ballesteros [place] Address [address] [place] [address] Care Team Providers Care Sales Clerk Name Role Phone Mukul Woodall M.D. Primary Care Provider Unavailable Hima Gonzalez Unavailable [phone] Allergies No Known Allergies Reason For Referral No Information Medications Medication SIG (Take, Route, Frequency, Duration) Notes Start Date End Date Status Losartan Potassium 100 MG 1 tablet Orall y Once a day; Duration: 30 day(s) Active Ciclopirox Olamine 0.77 % 1 application Externally Twice a day to feet including between the toes; Duration: 30 days Not-Taking Walking Boot/Pneumatic As directed Wear Daily; Duration: Until further notice 04/18/2025 Active Iodosorb 0.9 % as directed External ly Apply to ulceration daily with dry sterile dressing; Duration: 30 days Not-Taking Cephalexin 500 MG 1 capsule Orally amaya ry 6 hrs; Duration: 10 days Not-Taking Mupirocin Not-Taking Atorvastatin Calcium 40 MG 1 tablet Orally Once a day; Duration: 30 day(s) Active Gabapentin 600 MG 1 tablet Orally Once a day; Duration: 30 days Active Gabapentin 300 MG 1 capsule Orally Onc e a day Active Immunizations Vaccine Route Administration Date Status Comme nts Influenza Unknown 12/11/2024 Administered Social History Tobacco Use: Social History Observation Description Date Details (start date - stop date) Never Smoker NA - NA Tobacco use other than smoking: Question Answer Notes Are you an other tobacco user? No Tobacco Control (Standard) Question Answer Notes Tobacco use: Nonsmoker Additional Findings: Tobacco non-user Current no nsmoker AUDIT-C (Standard) Question Answer Notes Did you have a drink containing alcohol in the p ast year? No Points 0 Interpretation Negative Problems Problem Type SNOMED Code ICD Code Onset Dates Problem Status W/U Status Risk Notes Problem Neuropathy, alcoholic (G62.1) Active confirmed Vital Signs Heart Rate 49 /min 05/19/2025 Blood pressure diastolic 100 R mm Hg 05/19/2025 Height 6ft 1in in 05/19/2025 Blood pressure systolic 163 mm Hg 05/19/2025 Weight 275 lbs 05/19/2025 BMI 36.28 kg/m2 05/19/2025 Procedures Procedure Date Ordered Date Performed Result Body Sit e 54095-IRFCMBF NAIL, 1-5 08/05/2024 N/A 77130-RYDW SKIN LESIONS, OVER 4 08/05/2024 N/A J6476-TUZEUTQZ DYSTROPHIC NAILS ANY # 08/05/2024 N/A 80369-AKJYCZM NAIL, 1-5 11/11/2024 N/A 74512-IBEQ SKIN LESIONS, OVER 4 11/11/2024 N/A X9113-ILVKATZD DYSTROPHIC NAILS ANY # 11/11/2024 N/A 07956-WCAPVZK NAIL, 1-5 02/10/2025 N/A 27127-OJBI SKIN LESIONS, OVER 4 02/10/2025 N/A C8081-MMKOWVSW DYSTROPHIC NAILS ANY # 02/10/2025 N/A 31102-ZHREWFK NAIL, 1-5 05/19/2025 N/A 90188-LQJK SKIN LESIONS, OVER 4 05/19/2025 N/A V2941-GKTOQWON DYSTROPHIC NAILS ANY # 05/19/2025 N/A Encounters Encounter Location Date Provider Diagnosis [address] [address] 08/05/2024 Hima Lisa Tinea unguium B35.1 ; Neuropathy, 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 and Tinea pedis of both feet B35.[address] [address] 11/11/2024 Hima Lisa Tinea unguium B35.1 ; Neuropathy, 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 and Tinea pedis of both feet B35.[address] [place] [address] 02/10/2025 Hima Lisa Tinea unguium B35.1 and Neuropathy, 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 [address] 04/18/2025 Hima Lisa Achilles tendinitis of left lower extremity M76.62 ; Pain of left heel M79.672 and Rupture of left Achilles tendon, initial encounter S86.012A [facility] [address] [place] [address] 05/19/2025 Hima Lisa Tinea unguium B35.1 and Neuropathy, 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 [address] 02/10/2025 Hima Lisa [address] [address] 04/16/2025 Hima Lisa [address] [address] 04/18/2025 Hima Lisa Assessments Encounter Date Diagnosis (ICD Code) Assessment Notes Treatment Notes Treatment Clinical Notes Section Notes 08/05/2024 Tinea unguium (ICD-10 - B35.1) 11/11/2024 Neuropathy, alcoholic (ICD-10 - G62.1) 02/10/2025 Tinea unguium (ICD-10 - B35.1) 02/10/2025 Neuropathy, alcoholic (ICD-10 - G62.1) 04/18/2025 Pain of left heel (ICD-10 - M79.672) 04/18/2025 Achilles tendinitis of left lower extremity (ICD-10 - M76.62) 08/05/2024 Neuropathy, alcoholic (ICD-10 - G62.1) 11/11/2024 Tinea unguium (ICD-10 - B35.1) 05/19/2025 Tinea unguium (ICD-10 - B35.1) 05/19/2025 Neuropathy, alcoholic (ICD-10 - G62.1) 11/11/2024 Tinea pedis of both feet (ICD-10 - B35.3) 04/18/2025 Rupture of left Achilles tendon, initial encounter (ICD-10 - S86.012A) 08/05/2024 Tinea pedis of both feet (ICD-10 - B35.3) 08/05/2024 Other 11/11/2024 Other 02/10/2025 Other 05/19/2025 Other Plan Of Treatment Pending Test Test Name Order Date X ray : Foot, left 3V 12/04/2023 45199-HDIYEMC NAIL, 1-5 10/04/2023 20875-YYPDMOW NAIL, 1-5 07/24/2023 97797-DTOQSKA NAIL, 1-5 03/02/2023 35659-XKUXFHD NAIL, 1-5 05/12/2023 54818-ZDYZJZH NAIL, 1-5 01/03/2024 86159-WDFRGQS NAIL, 1-5 03/14/2024 94913-ECSGWMH NAIL, 1-5 05/20/2024 96380-UPHXFCL NAIL, 1-5 08/05/2024 35619-NKHWSLI NAIL, 1-5 11/11/2024 56029-PZJCGOW NAIL, 1-5 02/10/2025 90946-NDRAJEL NAIL, 1-5 05/19/2025 66362-Dlfglvgr Plate 05/20/2024 09849- Debride <25 sq cm 04/07/2023 93367- Debride <25 sq cm 05/12/2023 82397-KXAWBVR SKIN/TISSUE 03/02/2023 75837-JSSFSLB SKIN/TISSUE 03/21/2023 77392-NFCFQZB SKIN/TISSUE 12/22/2023 98188-DSTNWYS SKIN/TISSUE 12/04/2023 58580-OQHCXKT SKIN/TISSUE 01/03/2024 12614-FMKF SKIN LESIONS, OVER 4 01/03/20 24 02409-UIUQ SKIN LESIONS, OVER 4 05/20/20 24 00506-NVDI SKIN LESIONS, OVER 4 03/14/20 24 64788-YGEY SKIN LESIONS, OVER 4 08/05/20 24 21102-NWEB SKIN LESIONS, OVER 4 02/11/20 25 57964-PQLC SKIN LESIONS, OVER 4 11/11/19 25 02333-BJVN SKIN LESIONS, OVER 4 10/04/20 23 01098-UVQA SKIN LESIONS, OVER 4 07/24/20 23 95212-BIKA SKIN LESIONS, OVER 4 05/19/20 25 73129-NBYD SKIN LESIONS, 2 TO 4 03/02/20 23 04890-ILNZ SKIN LESIONS, 2 TO 4 05/12/20 23 A1554-IBBTKVCY DYSTROPHIC NAILS ANY # G8720-RBXOETPY DYSTROPHIC NAILS ANY # L5007-MLFBYFXG DYSTROPHIC NAILS ANY # B3382-LAUUCQJO DYSTROPHIC NAILS ANY # N0604-MXDFZOSP DYSTROPHIC NAILS ANY # F4722-MOCGZGJD DYSTROPHIC NAILS ANY # O1857-NUVBLAOB DYSTROPHIC NAILS ANY # D9300-PWTFIBXP DYSTROPHIC NAILS ANY # O5152-CJVSUEOE DYSTROPHIC NAILS ANY # Z7805-QTDUJXIJ DYSTROPHIC NAILS ANY # O4734-HSWQJAZF DYSTROPHIC NAILS ANY # 15985- Removal of Foreign Body, Subcut 0 05/20/2024 Next Appt Details Provider Name:Hima Gonzalez , 08/25/2025 03:45:00 PM, [address] [facility], [address], [place], [address], Insurance Providers Payer Name Payer Address Payer Phone Subscriber Number Group Number Insured Name Patient Relationship to Insured Coverage Start Date Coverage End Date [facility] [place] [facility] Preferred [address] [place] [address] [id number] Elieser Beckwith Self - patient is the insured Medical (General) History Medical History History ICD Code CAD (Cholesterol) covid-19 High blood pressure Numbness Measles Mumps Chicken pox Neuropathy Surgical History Surgery Date(Month/Year) Hospitalization History Reason Date(Month/Year) [facility] [place] Wound
== END 2025-06-23 15:49 | disposition home or self-care (01) ==
LOC: HO.HSM 15:20
PROVIDERS: PCP Internal Medicine; Referring Provider Internal Medicine; Visit Provider Psychiatry & Neurology Neurology
DX: G62.9 Polyneuropathy, unspecified (principal)
CPT/HCPCS: 99214

== ENCOUNTER → 2025-06-23 15:19 | Outpatient (BNVA) | payer MEDICARE, SELFPAY | PROVIDERS: PCP Internal Medicine; Referring Provider Internal Medicine; Visit Provider Psychiatry & Neurology Neurology | DX: G62.9 Polyneuropathy, unspecified (principal) | CPT/HCPCS: 99212 ==